=== PATIENT | male | born 1990 | race Caucasian/White ===

== ENCOUNTER 2017-12-01 04:00 | Inpatient (IN) | payer OTHER ==
[~2017-12-01 04:00] MED LIST: MIDAZOLAM 2 MG/2 ML VIAL IVP ONE; NS 1,000 ML IV ONE
[2017-12-01] MEDS ORDERED: SUCCINYLCHOLINE CHLORIDE 200 MG/10 ML VIAL IVP ONE (04:10)
[2017-12-01] MEDS ORDERED: ETOMIDATE 40 MG/20 ML INJ IVP ONE (04:10)
[2017-12-01] MEDS ORDERED: IOPAMIDOL (ISOVUE 370) 100 ML BTL IV ONE (04:11)
[2017-12-01] MEDS ORDERED: PROPOFOL/EMULSION 1,000 MG/100 ML BOTTLE IV ONE (04:15)
[2017-12-01] MEDS ORDERED: PROPOFOL/EMULSION 100 ML IV SCH ×2 (04:20→05:30)
[2017-12-01] MEDS ORDERED: ONDANSETRON 4 MG/2 ML VIAL ONE (04:22)
[2017-12-01] MEDS ORDERED: ONDANSETRON 4 MG/2 ML VIAL IVP ONE (04:23)
[2017-12-01] MEDS ORDERED: PROPOFOL 200 MG/20 ML VIAL IVP ONE (04:23)
[2017-12-01 04:24] LABS: PLATELET COUNT 252 10^3/uL (150-400)
[2017-12-01] MEDS ORDERED: NS 500 ML IV ONE (04:30)
[2017-12-01 04:33] LABS: INR 0.97 (0.83-1.16); PROTIME(PATIENT) 13.1 SEC (12.0-15.0)
--- NOTE | 2017-12-01 05:01 | EDPHY ---
H & P HPI/ROS: Chief Complaint: Fall, head injury HPI: 27-year-old male had a trip and fall down 12 concrete steps at home this morning. Per EMS the patient has been drinking alcohol. On EMS arrival the patient was unconscious. Patient then became increasingly combative. EMS states his GCS was 11. He required restraint. He has laceration to his right lip and contusion to his scalp. Unknown past medical history. Patient is unable to give me any history on arrival. EMS did not call for trauma team activation. ROS: Unavailable secondary to the patient's altered mental status PMH: Unknown Social History: Unknown smoking, positive alcohol, unknown drug use Family History: Unknown Physical Exam: Gen: Decreased responsiveness, not opening eyes, not making verbal sounds, GCS 7 HEENT: Head: Has an occipital abrasion with a large amount of scalp edema in the frontal and right parietal region, right lip laceration, not through and through Eyes: Pupils 3 mm and sluggish bilaterally, Nose: Dry blood around his nares Mouth: Normal dentition, Airway patent Face: No deformity Neck: no stepoff, cervical collar in place Chest: No deformities, no crepitus, lungs CTA Heart: normal heart tones Abd: soft, non-tender, atraumatic Pelvis: stable to AP and Lateral compression Back: atraumatic, no midline tenderness Ext: atramatic, full ROM Skin: no rash Neuro: GCS 7, moving all extremities, sensation intact in all extremities Allergies/Adverse Reactions: Unable to Assess Allergy (Unverified 12/01/17 05:02) Home Medications: Medication Instructions Recorded Unobtainable 12/01/17 Medical Decision Making - Diagnostics Imaging Results: CT scan of the head shows a bilateral subarachnoid hemorrhage, left parietal subdural hematoma, a parafalcine hematoma, no midline shift. There is a left frontal bone fracture., there is a left mastoid fracture with blood in the sinus CT cervical spine is normal CT chest shows a small anterior mediastinal blood collection with no sternal rib fractures and a normal aorta CT abdomen pelvis there is some thickening of clusters of small bowel adjacent to the right kidney with edematous mesentery, no free fluid, no blood, no solid organ injury. Studies interpreted by Dr. Molina. Procedures: ED procedure: Rapid sequence intubation Indication for the procedure was head injury, GCS of 7. The patient was preoxygenated with 100% oxygen by face mask. The patient was sedated with etomidate 20 mg and paralyzed with succinylcholine 120 mg. The patient was orally endotracheally intubated under glide scope visualization with a 8.0 ETT. Tracheal intubation was confirmed with misting on the tube; breath sounds were auscultated equally bilaterally; appropriate color change with [place] End Tidal CO2 detector, capnography waveform is appropriate, oxygen saturation after procedure is 100%. Chest X-ray shows ETT in good position. The procedure was performed by myself. ED Course/Re-evaluation: 27-year-old male status post fall down 10 stairs, obvious head trauma with a GCS of 7. Patient is not following commands. He is moving in unsafe. Patient was RSI intubated by me to facilitate workup in to protect the patient. Called Dr. Romero, trauma surgery for evaluation. Chest x-ray shows endotracheal tube in good position, lungs are inflated, no pneumothorax appreciated. Dr. Romero at the bedside. Patient had a large emesis during OG placement, patient's airway is protected. He was rolled to protect his airway. Patient to CT scan. CT scan results relayed to me by Dr. Molina. I have relayed these trauma surgery. He he is spoke with Dr. Daniels, neurosurgery. Patient received Keppra 1 g IV. Patient to the ICU. Critical Care Time: I spent a total of 40 minutes of critical care time in obtaining history, performing a physical exam, bedside monitoring of interventions, collecting and interpreting tests and discussion with consultants but not including time spent performing procedures. - Data Points Laboratory Results: Laboratory Results 12/01/17 04:16 12/01/17 04:00 12/01/17 12/01/17 12/01/17 04:57 04:55 04:16 WBC 13.49 10^3/uL H 10^3/uL (3.80-9.50) RBC 4.52 10^6/uL 10^6/uL (4.40-6.38) Hgb 14.5 g/dL g/dL (13.7-17.5) POC Hgb Hct 41.2 % % (40.0-51.0) POC Hct MCV 91.2 fL fL (81.5-99.8) MCH 32.1 pg pg (27.9-34.1) MCHC 35.2 g/dL g/dL (32.4-36.7) RDW 12.0 % % (11.5-15.2) Plt Count 252 10^3/uL 10^3/uL (150-400) MPV 9.2 fL fL (8.7-11.7) Neut % (Auto) 50.9 % % (39.3-74.2) Lymph % (Auto) 39.1 % % (15.0-45.0) [place] % (Auto) 6.7 % % (4.5-13.0) Eos % (Auto) 2.4 % % (0.6-7.6) Baso % (Auto) 0.4 % % (0.3-1.7) Nucleat RBC Rel Count 0.0 % % (0.0-0.2) Absolute Neuts (auto) 6.86 10^3/uL H 10^3/uL (1.70-6.50) Absolute Lymphs (auto) 5.28 10^3/uL H 10^3/uL (1.00-3.00) Absolute Monos (auto) 0.91 10^3/uL H 10^3/uL (0.30-0.80) Absolute Eos (auto) 0.32 10^3/uL 10^3/uL (0.03-0.40) Absolute Basos (auto) 0.05 10^3/uL 10^3/uL (0.02-0.10) Absolute Nucleated RBC 0.00 10^3/uL 10^3/uL (0-0.01) Immature Gran % 0.5 % % (0.0-1.1) Immature Gran # 0.07 10^3/uL 10^3/uL (0.00-0.10) PT INR APTT Puncture Site LEFT RADIAL Patient Temperature 34.5 DEGREES DEGREES pCO2 28 mmHg L mmHg (34-38) pO2 115 mmHg H mmHg (65-75) Total CO2 20 mEq/L L mEq/L (23-27) ABG pH 7.42 (7.35-7.45) ABG PO2/FiO2 Ratio 288 RATIO RATIO ABG HCO3 19 mEq/L L mEq/L (22-26) ABG O2 Saturation 99 % H % (92-95) ABG Base Excess -5.0 mEq/L L mEq/L (-2.5-2.5) O2 Concentration % 40 % % (0-100) Set Respiration Rate 16 SIMV YES Tidal Volume 600 End Tidal CO2 24 PEEP 5 Peak Inspir Pressure 16.10 Pressure Support 7 POC Sodium Sodium POC Potassium Potassium POC Chloride Chloride Carbon Dioxide Anion Gap POC BUN BUN Creatinine POC Creatinine Estimated GFR Glucose POC Glucose Calcium Urine Opiates Screen NEGATIVE (NEGATIVE) Urine Barbiturates NEGATIVE (NEGATIVE) Ur Phencyclidine Scrn NEGATIVE (NEGATIVE) Ur Amphetamine Screen NEGATIVE (NEGATIVE) U Benzodiazepines Scrn NEGATIVE (NEGATIVE) Urine Cocaine Screen NEGATIVE (NEGATIVE) U Marijuana (THC) Screen NEGATIVE (NEGATIVE) Ethyl Alcohol Patient ABO/Rh Antibody Screen 12/01/17 12/01/17 12/01/17 04:13 04:13 04:00 WBC RBC Hgb POC Hgb 14.6 gm/dL gm/dL (13.7-17.5) Hct POC Hct 43 % % (40-51) MCV MCH MCHC RDW Plt Count MPV Neut % (Auto) Lymph % (Auto) [place] % (Auto) Eos % (Auto) Baso % (Auto) Nucleat RBC Rel Count Absolute Neuts (auto) Absolute Lymphs (auto) Absolute Monos (auto) Absolute Eos (auto) Absolute Basos (auto) Absolute Nucleated RBC Immature Gran % Immature Gran # PT 13.1 SEC SEC (12.0-15.0) INR 0.97 (0.83-1.16) APTT 25.2 SEC SEC (23.0-38.0) Puncture Site Patient Temperature pCO2 pO2 Total CO2 ABG pH ABG PO2/FiO2 Ratio ABG HCO3 ABG O2 Saturation ABG Base Excess O2 Concentration % Set Respiration Rate SIMV Tidal Volume End Tidal CO2 PEEP Peak Inspir Pressure Pressure Support POC Sodium 143 mEq/L mEq/L (135-145) Sodium POC Potassium 3.2 mEq/L L mEq/L (3.3-5.0) Potassium POC Chloride 105 mEq/L mEq/L (97-110) Chloride Carbon Dioxide Anion Gap POC BUN 15 mg/dL mg/dL (7-23) BUN Creatinine POC Creatinine 1.3 mg/dL mg/dL (0.7-1.3) Estimated GFR Glucose POC Glucose 152 mg/dL H mg/dL (70-100) Calcium Urine Opiates Screen Urine Barbiturates Ur Phencyclidine Scrn Ur Amphetamine Screen U Benzodiazepines Scrn Urine Cocaine Screen U Marijuana (THC) Screen Ethyl Alcohol Patient ABO/Rh O POSITIVE Antibody Screen NEGATIVE 12/01/17 04:00 WBC RBC Hgb POC Hgb Hct POC Hct MCV MCH MCHC RDW Plt Count MPV Neut % (Auto) Lymph % (Auto) [place] % (Auto) Eos % (Auto) Baso % (Auto) Nucleat RBC Rel Count Absolute Neuts (auto) Absolute Lymphs (auto) Absolute Monos (auto) Absolute Eos (auto) Absolute Basos (auto) Absolute Nucleated RBC Immature Gran % Immature Gran # PT INR APTT Puncture Site Patient Temperature pCO2 pO2 Total CO2 ABG pH ABG PO2/FiO2 Ratio ABG HCO3 ABG O2 Saturation ABG Base Excess O2 Concentration % Set Respiration Rate SIMV Tidal Volume End Tidal CO2 PEEP Peak Inspir Pressure Pressure Support POC Sodium Sodium 147 mEq/L H mEq/L (135-145) POC Potassium Potassium 3.7 mEq/L mEq/L (3.5-5.2) POC Chloride Chloride 107 mEq/L mEq/L (97-110) Carbon Dioxide 21 mEq/l L mEq/l (22-31) Anion Gap 19 mEq/L H mEq/L (8-16) POC BUN BUN 15 mg/dL mg/dL (7-23) Creatinine 1.0 mg/dL mg/dL (0.7-1.3) POC Creatinine Estimated GFR > 60 Glucose 142 mg/dL H mg/dL (70-100) POC Glucose Calcium 9.0 mg/dL mg/dL (8.5-10.4) Urine Opiates Screen Urine Barbiturates Ur Phencyclidine Scrn Ur Amphetamine Screen U Benzodiazepines Scrn Urine Cocaine Screen U Marijuana (THC) Screen Ethyl Alcohol 383 mg/dL H mg/dL (0-10) Patient ABO/Rh Antibody Screen Point of Care Test Results: 12/01/17 04:00 POC Sodium 143 POC Potassium 3.2 L POC Chloride 105 POC BUN 15 POC Creatinine 1.3 POC Glucose 152 H Departure - Departure Disposition: [facility] Inpatient Acute Clinical Impression: Subarachnoid hemorrhage, Skull fracture Condition: Critical
[2017-12-01] MEDS ORDERED: levETIRAcetam 1,000 MG in NS 100 ML IV ONE (05:02)
[2017-12-01] MEDS ORDERED: NALOXONE HCL 0.4 MG/ML INJ IVP PRN (05:02)
[2017-12-01] MEDS ORDERED: fentaNYL 100 MCG/2 ML INJ IVP PRN (05:07)
[2017-12-01] MEDS ORDERED: ETOMIDATE 40 MG/20 ML INJ ONE (05:38)
[2017-12-01] MEDS ORDERED: TDAP ADULT 0.5 ML INJ (BOOSTRIX) IM ONE (05:38)
[2017-12-01] MEDS ORDERED: SUCCINYLCHOLINE CHLORIDE 200 MG/10 ML SYR IVP ONE (05:38)
--- NOTE | 2017-12-01 06:04 | GHP ---
[f rep st] HISTORY AND PHYSICAL DATE OF ADMISSION: 12/01/2017 CHIEF COMPLAINT: Fall. HISTORY OF PRESENT ILLNESS: This is a 27-year-old Male, who was brought to the [facility] emergency department by EMS after a witnessed sustained a mechanical fall. Per witnesses, the patient was drinking tonight and fell down a flight of stairs, approximately 12. Friends were with him at that time, and called 911. On arrival, the patient was combative and appeared to have urinated on the scene. Upon arrival here, he was combative, had a GCS of 8. The decision was made at that point in time, after arrival, to intubate for airway protection and upgrade to a full trauma activation. Upon my arrival, the patient had already been intubated as described above. Prior to this the patient was moving all extremities, was mumbling, and had a nonfocal exam. His airway was protected with the ET tube. He was breathing on the vent, paralyzed medically. His circulation appeared adequate with normal pressures. PAST MEDICAL HISTORY: Unobtainable. PAST SURGICAL HISTORY: Unobtainable. FAMILY HISTORY: Unobtainable. SOCIAL HISTORY: Unobtainable. REVIEW OF SYSTEMS: Unobtainable. PHYSICAL EXAM: VITAL SIGNS: Heart rate 88, blood pressure 120/89. CONSTITUTIONAL: Intubated. Sedated. Does move all extremities when sedation is weaned. EYES: pupils are equal, round, reactive to light. extraocular movements are intact. EARS, NOSE, MOUTH, THROAT: No external signs of trauma. Normal dentition. No drainage from either ear. No oral mucosal ulcers. CARDIOVASCULAR: Regular rate and rhythm without murmur. RESPIRATORY: No respiratory distress, rales, or rhonchi. GI: abdomen is soft, nondistended, nontender. SKIN: Abrasion on left shoulder. No other external signs of trauma on body. Normal color. No rashes or abrasions. MUSCULOSKELETAL: Full- strength. Denied tenderness. Normal range of motion. Nonfocal. NEUROLOGIC: Alert and oriented x3. Cranial nerves 2-12 intact. No weakness. No numbness. PSYCH : Best GCS of 8. Intubated in the emergency department. LYMPH/HEME/ IMMUNOLOGIC: No appreciable lymphadenopathy. LABORATORY DATA: White blood cell count 13, H and H stable at 14 and 41, platelets 252. Coags normal with an INR of 0.97. Blood gas shows a pH of 7.4 with base deficit of 5, CO2 of 20. Chemistry shows low potassium at 3.2, a glucose of 152. Tox screen is negative with the exception of an ETOH of 383. Patient had CT scan imaging performed of head; C-spine chest, abdomen, and pelvis. All these images personally reviewed. The following injuries were identified: Bilateral subarachnoid hemorrhage, left parietal subdural hematoma without shift, left frontal fracture, left mastoid fracture with blood in the sinus, and a parafalcine hematoma. Chest: No injuries. C-spine: No injuries. Abdomen and pelvis: No traumatic injuries. ASSESSMENT AND PLAN: A 27-year-old male, status post mechanical fall with the above head injuries. Patient will subsequently be admitted to the intensive care unit for intensive neuro monitoring. We will wean sedation and, as tolerates, plan for extubation within the next day or so. He received both tetanus and Keppra in the emergency department. Neurosurgical services have been notified and will review his images and consult on the patient. A Cotter catheter was placed in the ED along with an OG tube. We will contact his family. Will plan to repeat CT scan imaging per neurosurgical recommendations to ensure no worsening of his bleeds. /[id number]/MODL MTDD
[2017-12-01] MEDS: levETIRAcetam 500 MG in NS 100 ML IV SCH ×2 (08:05→20:22)
[2017-12-01] MEDS: FAMOTIDINE 20 MG/NACL 50 ML IV SCH ×2 (08:08→20:22)
--- NOTE | 2017-12-01 09:14 | TRAUMAPN ---
Assessment/Plan: Facial trauma status post fall while intoxicated. Intubated sedated in the ICU. Sub dural and sub arachnoid hemorrhage. Neurosurgery to see likely repeat imaging later on today. Await resolution of intoxication. Wean to extubate. Tertiary survey pending Objective: Vital Signs Temp Pulse Resp BP Pulse Ox 36.8 C 77 14 91/58 L 100 12/01/17 09:00 12/01/17 09:00 12/01/17 09:00 12/01/17 09:00 12/01/17 09:00 11/30/17 12/01/17 12/02/17 05:59 05:59 05:59 Intake Total 1250 Output Total 800 Balance 450 PT 13.1 SEC (12.0-15.0) 12/01/17 04:13 INR 0.97 (0.83-1.16) 12/01/17 04:13
--- NOTE | 2017-12-01 09:44 | GCON ---
[f rep st] CONSULTATION SYSTEM SOFTWARE DEVELOPER CONSULTATION REASON FOR ADMISSION: Multitrauma, closed head injury after a mechanical fall. The patient is a 27-year-old, white male, with unknown past medical history. He apparently had been drinking excessively and fell down a flight of stairs. There was some nausea and vomiting approximat penny at that time. He was brought in via EMS, intubated, and on mechanical ventilation and then subse quently admitted to the intensive care unit. Currently, he is sedated on mechanical ventilation. Al l history is gleaned from the medical record. REVIEW OF SYSTEMS: A 10-point review of systems was attempted but unable to obtain secondary to alte red mental status. PAST MEDICAL HISTORY: Unknown. PAST SURGICAL HISTORY: Unknown. FAMILY HISTORY: Noncontributory. SOCIAL HISTORY: Unknown. PHYSICAL EXAMINATION: VITAL SIGNS: Blood pressure is 91/58, pulse 77, respirations 14, temperature 36.8, oxygen saturation 100% on mechanical ventilation. GENERAL: He is a well-developed, well-arturo shed 27-year-old male, who is sedated and on mechanical ventilation. HEENT: Eyes are PERRLA, EOMI. He has swelling beneath his left eye. NECK: Has a hard C-collar. Endotracheal tube is in good pos ition. HEART: Regular rate and rhythm without murmurs, rubs, gallops. LUNGS: Diminished breath so unds. Otherwise, clear. ABDOMEN: Soft, nontender. Bowel sounds are present. EXTREMITIES: No clu bbing, cyanosis, or edema. LABORATORIES: White count is 13, hemoglobin 14, hematocrit 43, platelet count is 252. INR is 0.97. Sodium 143, potassium 3.2, chloride 107, CO2 is 21, BUN is 15, creatinine 1, glucose is 142. Arteri al blood gas pH is 7.42, pCO2 of 28, pO2 of 115, bicarb of 20, oxygen saturation 99%. This is on IMV of 16, tidal volume 600, plus 7 of pressure support, plus 5 of PEEP and 40%. CT scan of the head is reported as bilateral subarachnoid hemorrhage, with a left parietal subdural hematoma without shift. He has a left frontal fracture, left mastoid fracture with blood in the sinus and a parafalcine hem atoma. IMPRESSION: 1. Status post multitrauma. 2. Closed head injury with subarachnoid, subdural hematomas. 3. Acute respiratory failure secondary to head trauma. 4. Possible aspiration, per history. 5. Possible seizures. RECOMMENDATIONS: 1. Continue mechanical ventilation for now. 2. Perform fiberoptic bronchoscopy at soonest. 3. DVT and PE prophylaxis, holding anticoagulation for now. 4. Stress ulcer prophylaxis. 5. Continue aggressive sedation. 6. Neurosurgery has seen the patient. /[id number]/MODL
[2017-12-01] MEDS ORDERED: LIDOCAINE 2% JELLY 5 ML TUBE TP ONE (10:36)
[2017-12-01] MEDS ORDERED: LIDOCAINE 1% 300 MG/30 ML SDV MISC ONE (10:36)
--- NOTE | 2017-12-01 12:45 | NEUSURGPN ---
Assessment/Plan: Neurosurgery Consult Note-Full consult dictated 27 yo male sp fall down stairs while intoxicated -Head CT wo contrast shows small bilateral subdural hematomas and scattered subarachoid hemorrhage without midline shift -Neuro exam- limited due to sedation. Pupils equal and sluggishly reactive. Some grimmace to noxious stimuli -Repeat Head CT 1030 shows similar findings, no midline shift or worsening of subdural hematoma -Would recommend lightening sedation when able in order to get better neuro exam -Unable to clear cervical collar clinically at this time. CT Cervical Spine does not show any fractures but unsure of ligamentous injury -Seen by myself at 0630am and seen by Dr. Mills at 0830am -Will determine any further imaging/scans once able to get better exam, currently no neurosurgical intervention as has stable scans without midline shift Catheter Insertion Date: 12/01/17 - Physician Discussed Patient with Dr.: Mills Patient Seen by Dr.: Mills Neurosurgery Physical Exam - Vitals, I&O, Labs I and O 11/30/17 12/01/17 12/02/17 05:59 05:59 05:59 Intake Total 1250 Output Total 800 Balance 450 Weight 81.5 kg Intake: IV Infused (ml) 1250 Output: Urine (ml) 800 Other: Number of Emesis 1 Occurrences Vital Signs Temp Pulse Resp BP Pulse Ox 37.1 C 74 14 83/52 L 100 12/01/17 11:00 12/01/17 11:35 12/01/17 11:35 12/01/17 11:00 12/01/17 11:35 ICD10 Worksheet Patient Problems: Problems Problem Status Onset Skull fracture Acute Subarachnoid hemorrhage Acute
--- NOTE | 2017-12-01 13:25 | GCON ---
[f rep st] CONSULTATION NEUROSURGERY CONSULTATION CHIEF COMPLAINT: Fall down the stairs with head trauma. HISTORY OF PRESENT ILLNESS: This is a 27-year-old male who had a trip and fall down concrete steps at his home. The patient, per EMS, had been drinking alcohol. On EMS arrival, the patient was unconscious. The patient became increasingly combative. The EMS stated that his GCS was 11 at that time. He had some lacerations on his lip and scalp. However, the rest of his past medical history was unknown. He did arrive to the [facility] Emergency Room where he was then scanned and a CT scan of the head showed bilateral subarachnoid hemorrhage, left parietal small subdural hematoma, a parafalcine hematoma with no midline shift. There were also a left frontal bone fracture, and left mastoid fracture with blood in the sinus. CT of the cervical spine was found to be normal. The patient was then admitted to the ICU. The patient' s GCS did drop to a GCS of 7, requiring intubation. The patient was then admitted to the ICU. REVIEW OF SYSTEMS: Unable to obtain due to patient's mental status. PAST MEDICAL HISTORY: Unable to obtain due to the patient's mental status. PAST SURGICAL HISTORY: Unable to obtain due to patient's mental status. ALLERGIES: Patient has no known drug allergies. MEDICATIONS: Home medications unable to obtain due to patient's mental status. OBJECTIVE: VITAL SIGNS: Blood pressure 83/52, heart rate 76, respiratory rate 14, O2 sat 100% on a ventilator, FiO2 of 40%. Temperature 37.1 degrees Celsius. CONSTITUTIONAL: Patient is currently intubated and sedated. EYES: Pupils are pinpoint and equal. They are conjugate. He has multiple abrasions on his face and lip. EXTREMITIES: He does not have any cyanosis or edema noted. He does have a hard cervical collar in place. ABDOMEN: Nontender. NEURO: Limited due to the patient's current intubation and sedation. He does have a slight grimace to noxious stimuli, but no other movement of any extremities. LABORATORY DATA: White blood cell count 13.49, red blood cell count 4.52, hemoglobin 14.5, hematocrit 41.2. INR 0.97, APTT 25.2, PT 13.1. Blood gas: PCO2 28, pO2 115, O2 concentration percent is 40, respiratory rate is 16, tidal volume 600, PEEP of 5, and tidal CO2 is 24. ABG O2 saturation is 99. Chemistry : Sodium 143, potassium 3.7, chloride 107, carbon dioxide 21, anion gap 19, BUN 15, creatinine 1.0, estimated GFR greater than 60. Calcium is 9.0. Toxicology: Positive for alcohol 383. Negative for opiates, barbiturates, amphetamines, benzodiazepines, cocaine, and marijuana. DIAGNOSTIC IMAGING REVIEW: A head CT was performed without contrast at 0408 and shows: 1. Extensive subarachnoid hemorrhage with small subdural hematoma, and it is difficult to exclude small brain parenchymal contusions in a situation such as this, and if clinically indicated, MRI of the brain would be best subarachnoid from parenchymal hemorrhage. 2. Nondepressed left frontal and left mastoid sinus fractures. 3. No hydrocephalus, midline shift, or significant parenchymal edema at this time. A repeat head CT was then performed at 9:53 this morning and shows a subarachnoid and subdural blood with associated multiple petechial hemorrhage foci. A cervical spine CT was performed and shows good position of the ET tube and NG tube. No cervical fracture or dislocation is identified. ASSESSMENT: This is a 27-year-old male, who was intoxicated and fell down the stairs. His GCS declined, and he was combative, therefore, he was intubated. A head CT without contrast showed bilateral small subdural hematomas, as well as scattered subarachnoid hemorrhage. There was no midline shift. A repeat head CT scan 5 hours later was stable with subarachnoid and subdural blood with associated multiple petechial hemorrhage foci. The patient is currently unable to have a full neuro exam done, as he is currently intubated and sedated. We will wait until the patient is able to be weaned from his sedation, and hopefully extubated in order to get a better neuro exam. Currently at this time , there is no neurosurgical intervention needed, as his scans are stable, and do not have any midline shift. I did talk with Dr. Fletcher of Critical Care about this as well, and we will see what his neuro exam is like once he is off sedation. The patient was seen by myself at approximately 6:30 am. The patient was also seen by Dr. iMlls at approximately 8:30 a.m. Any questions or concerns please do not hesitate to ask Neurosurgery. We will continue to monitor this and follow this patient along,and assess what his exam is once he is off his sedation. /[id number]/MODL MTDD
[2017-12-01] MEDS: ONDANSETRON 4 MG/2 ML VIAL IVP PRN ×3 (13:55→21:50)
[2017-12-01] MEDS ORDERED: THIAMINE HCL 500 MG in NS 100 ML IV SCH (14:30)
[2017-12-01] MEDS: NS W/ 20 KCl/L 1,000 ML IV SCH (15:04)
[2017-12-01] MEDS: THIAMINE HCL 500 MG in NS 100 ML IV SCH (15:07)
--- NOTE | 2017-12-01 15:25 | ASMTCMCOM ---
CM Note CM Note Notes: Pt was admitted with SDH, SAH after a fall down stairs while intoxicated. Intubated and sedated due to combativeness, hoping to extubate soon. Parents arrived this morning. PT/OT/SLT evals pending. CM will follow for any d/c needs. Date Signed: 12/01/2017 03:24 PM Electronically Signed By:ALESSANDRA Alas
[2017-12-01] MEDS: CHLORHEXIDINE GLUCONATE 15 ML UDL PO SCH ×2 (16:01→19:12)
--- NOTE | 2017-12-01 18:36 | GPN ---
[f rep st] PROCEDURE NOTE PROCEDURE: Fiberoptic bronchoscopy. INDICATION: Possible aspiration. ANESTHESIA: Patient is currently sedated with propofol and on mechanical ventilation. PROCEDURE IN DETAIL: The procedure was performed in the intensive care unit. Continuous pulse ox, E KG, and blood pressure monitoring. Please note, patient is on mechanical ventilation which is by def inition a closed system and poses no risk to airborne pathogens however, and 95 masks were used throu ghout the procedure. After informed consent was obtained, bronchoscope was entered through #8 endotracheal tube. Distal t rachea and lashon were visualized, showed no endobronchial lesions and normal-appearing mucosa. Bron choscope in the right lung; right upper lobe, right middle lobe, right lower lobe, including subsegm ents were subsequently visualized and showed no endobronchial lesions and normal-appearing mucosa. B ronchoscope in the left lung; left upper lobe, lingula, left lower lobe, including subsegments were s ubsequently visualized, showed no endobronchial lesions and normal-appearing mucosa. There was no ev idence of aspiration throughout the procedure. Patient tolerated the procedure well. There were no apparent complications. /[id number]/MODL
[2017-12-02] MEDS: ONDANSETRON 4 MG/2 ML VIAL IVP PRN ×3 (02:57→15:29)
[2017-12-02] MEDS: NS W/ 20 KCl/L 1,000 ML IV SCH ×2 (03:20→17:59)
[2017-12-02] MEDS: levETIRAcetam 500 MG in NS 100 ML IV SCH (08:02)
[2017-12-02] MEDS: CHLORHEXIDINE GLUCONATE 15 ML UDL PO SCH (08:02)
[2017-12-02] MEDS: THIAMINE HCL 500 MG in NS 100 ML IV SCH (08:02)
[2017-12-02] MEDS: FAMOTIDINE 20 MG/NACL 50 ML IV SCH ×2 (08:02→21:04)
--- NOTE | 2017-12-02 09:31 | PDINTPN ---
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 Follows simple commands, but not verbal yet. Impulsive * C collar-still in place * Nutrition-none * PT/OT * Speech to see * Disposition-may need rehab Subjective: Opens eyes. Follows simple commands. Nonverbal at this point. Objective: Vital Signs Temp Pulse Resp BP Pulse Ox 37.8 C 68 12 129/76 H 95 12/02/17 07:55 12/02/17 07:55 12/02/17 07:55 12/02/17 07:55 12/02/17 07:55 12/01/17 12/02/17 12/03/17 05:59 05:59 05:59 Intake Total 1250 2322 Output Total 800 3300 Balance 450 -978 PT 13.1 SEC (12.0-15.0) 12/01/17 04:13 INR 0.97 (0.83-1.16) 12/01/17 04:13 Laboratory Results 12/01/17 04:16 12/01/17 04:00 12/01/17 15:30 Patient Temperature 37.6 DEGREES DEGREES pCO2 39 mmHg H mmHg (34 - 38) pO2 64 mmHg L mmHg (65 - 75) Total CO2 21 mEq/L L mEq/L (23 - 27) ABG pH 7.33 L (7.35 - 7.45) ABG HCO3 20 mEq/L L mEq/L (22 - 26) ABG O2 Saturation 89 % L % (92 - 95) ABG Base Excess -4.7 mEq/L L mEq/L (-2.5 - 2.5) - Time Spent With Patient Time Spent With Patient: 35 min of time spent with patient, over 1/2 involved with coordination of care for counseling. Case discussed with respiratory therapy, nursing, as well as the patient's family. Physical Exam - Physical Exam General Appearance: other (Awake, somewhat agitated) EENT: PERRL/EOMI Neck: other (Hard C-collar) Respiratory: chest non-tender, lungs clear, normal breath sounds Cardiac/Chest: normal peripheral pulses, regular rate, rhythm Peripheral Pulses: 2+: carotid (R), carotid (L), femoral (R), femoral (L), dorsalis-pedis (R), dorsalis-pedis (L) Abdomen: normal bowel sounds Male Genitalia: deferred Rectal: deferred Skin: normal color, warm/dry Extremities: normal range of motion Neuro/Psych: other (Awake) ICD10 Worksheet Patient Problems: Problems Problem Status Onset Skull fracture Acute Subarachnoid hemorrhage Acute
--- NOTE | 2017-12-02 10:45 | NEUSURGPN ---
Assessment/Plan: Neurosurgery Consult Note 27 yo male sp fall down stairs while intoxicated on 12/01 -Head CT wo contrast shows small bilateral subdural hematomas and scattered subarachoid hemorrhage without midline shift -Neuro exam- Improving-patient moving all extremities. Follows simple commands , but not verbal yet. May have said one word yesterday. He is impulsive. Will continue to monitor this, speech may take some time due to frontal lobe contusions but should get better -no further scans warranted at this time -Unable to clear cervical collar clinically at this time. CT Cervical Spine does not show any fractures but unsure of ligamentous injury -Patient discussed with Dr. Mills. -Parents also updated this morning S: Patient nonverbal O: NAD, VSS PERRL, EOM-Does track to command briefly but looses concentration easily No droop Nonverbal PEREZ X4 with full strength to command- impulsive and trying to pull on everything Catheter Insertion Date: 12/01/17 - Physician Discussed Patient with Dr.: Mills Neurosurgery Physical Exam - Vitals, I&O, Labs I and O 12/01/17 12/02/17 12/03/17 05:59 05:59 05:59 Intake Total 1250 2322 Output Total 800 3300 Balance 450 -978 Weight 81.5 kg Intake: IV Intake (ml) 1132 IV Infused (ml) 1250 1190 NS W/ 20 KCl/L 1,000 ml @ 1000 75 mls/hr IV CONT AMAIRANI Rx #:[id number] Propofol/Emulsion 100 ml 135 @ Titrate IV CONT AMAIRANI Rx# :[id number] fentaNYL 1,000 mcg In Ns 55 100 ml @ Per Protocol IV EDNOW ONE Rx#:[id number] Output: Urine (ml) 800 2950 Catheter 2950 Emesis (ml) 200 OG Tube Output (ml) 150 Forgan Sump 150 Other: Number of Stools Catheter 0 Number of Emesis 1 Occurrences Vital Signs Temp Pulse Resp BP Pulse Ox 37.7 C 69 19 132/70 H 95 12/02/17 09:00 12/02/17 09:00 12/02/17 09:00 12/02/17 09:00 12/02/17 09:00 ICD10 Worksheet Patient Problems: Problems Problem Status Onset Skull fracture Acute Subarachnoid hemorrhage Acute
[2017-12-02] MEDS ORDERED: levETIRAcetam 750 MG in NS 100 ML IV SCH (14:00)
--- NOTE | 2017-12-02 19:28 | SOAPPROG ---
SOAP Progress Note Assessment/Plan: Assessment: still non-talkative/ moves all extrem chest clear/ cor rr/ abd soft/ extrem full rom still unresponsive so unable to clear neck Plan:continue ICU treatment 12/02/17 19:26 Objective: Vital Signs Temp Pulse Resp BP Pulse Ox 38.1 C 63 22 H 124/82 H 95 12/02/17 19:00 12/02/17 19:00 12/02/17 19:00 12/02/17 19:00 12/02/17 19:00 12/01/17 12/02/17 12/03/17 05:59 05:59 05:59 Intake Total 1250 2322 1010 Output Total 800 3300 725 Balance 450 -978 285 PT 13.1 SEC (12.0-15.0) 12/01/17 04:13 INR 0.97 (0.83-1.16) 12/01/17 04:13 ICD10 Worksheet Patient Problems: Problems Problem Status Onset Fall (on) (from) other stairs and steps, initial encounter Acute Skull fracture Acute Subarachnoid hemorrhage Acute
[2017-12-02] MEDS: levETIRAcetam 750 MG in NS 100 ML IV SCH (21:05)
[2017-12-02] MEDS ORDERED: ACETAMINOPHEN 650 MG SUPP PR PRN (22:15)
[2017-12-03 05:24] LABS: PLATELET COUNT 148 10^3/uL (150-400)
--- NOTE | 2017-12-03 08:16 | NEUSURGPN ---
Assessment/Plan: 27 yo male sp fall down stairs while intoxicated on 12/01 -Head CT wo contrast shows small bilateral subdural hematomas and scattered subarachoid hemorrhage without midline shift. Will get repeat head CT today. -Neuro exam- Continues to slowly improve, remains non-verbal. Moving all extremities -Unable to clear cervical collar clinically at this time. CT Cervical Spine does not show any fractures but unsure of ligamentous injury -Patient tolerating PO per RN, ST continue to assess/treat. May change rectal Tylenol to PO and other meds as recommendation by ST/Pharmacy -Leave [place] for now, may dc in AM -Patient discussed with Dr. Mills Subjective: No new events per RN Objective: PERRL EOM-Does track to command briefly but looses concentration easily No droop Nonverbal PEREZ X4 with full strength to command- impulsive and trying to pull on everything Neuro Check Frequency: per routine Urinary Catheter in Place: Yes Urinary Catheter Indication: Accurate I & O Required Catheter Insertion Date: 12/01/17 - Physician Discussed Patient with : Lina Neurosurgery Physical Exam - Vitals, I&O, Labs I and O 12/02/17 12/03/17 12/04/17 05:59 05:59 05:59 Intake Total 2322 1972 Output Total 3300 1475 Balance -978 497 Weight 81.5 kg Intake: IV Intake (ml) 1132 962 IV Infused (ml) 1190 1010 NS W/ 20 KCl/L 1,000 ml @ 1000 1010 75 mls/hr IV CONT AMAIRANI Rx #:[id number] Propofol/Emulsion 100 ml 135 @ Titrate IV CONT AMAIRANI Rx# :[id number] fentaNYL 1,000 mcg In Ns 55 100 ml @ Per Protocol IV EDNOW ONE Rx#:[id number] Output: Urine (ml) 2950 1475 Catheter 2950 1475 Emesis (ml) 200 OG Tube Output (ml) 150 Grady Sump 150 Other: Number of Stools Catheter 0 0 Vital Signs Temp Pulse Resp BP Pulse Ox 37.9 C 65 21 H 122/92 H 94 12/03/17 06:51 12/03/17 06:51 12/03/17 06:51 12/03/17 05:57 12/03/17 06:51 Laboratory Results 12/03/17 05:00 12/03/17 05:00 ICD10 Worksheet Patient Problems: Problems Problem Status Onset Fall (on) (from) other stairs and steps, initial encounter Acute Skull fracture Acute Subarachnoid hemorrhage Acute
[2017-12-03] MEDS: FAMOTIDINE 20 MG/NACL 50 ML IV SCH (08:27)
[2017-12-03] MEDS: ACETAMINOPHEN 325 MG TAB PO PRN ×2 (08:27→20:39)
[2017-12-03] MEDS: levETIRAcetam 750 MG in NS 100 ML IV SCH (08:27)
[2017-12-03] MEDS: THIAMINE HCL 500 MG in NS 100 ML IV SCH (08:27)
[2017-12-03] MEDS: NS W/ 20 KCl/L 1,000 ML IV SCH (08:30)
[2017-12-03] MEDS: ONDANSETRON 4 MG/2 ML VIAL IVP PRN (09:11)
--- NOTE | 2017-12-03 10:44 | TRAUMAPN ---
Assessment/Plan: Facial trauma status post fall while intoxicated. Sub dural and sub arachnoid hemorrhage. Mastoid fx Awake not oriented OOB to chair C-Collar in place Intermittently follows commands Unable to complete tertiary survey due to non verbal status Left eye ecchymosis RRR CTA Abd soft NT Neurosurgery to see likely repeat imaging later on today. Rehab post discharge MRI of neck in 28-48hr if remains non verbal so as to clear c-spine per protocol [place] until 12/04 as unable to communicate yet -remove then Fever overnight likely atelectasis CXR no signs of aspiration Tertiary survey pending Objective: Vital Signs Temp Pulse Resp BP Pulse Ox 37.9 C 66 18 137/83 H 95 12/03/17 09:00 12/03/17 09:00 12/03/17 09:00 12/03/17 08:00 12/03/17 09:00 Laboratory Results 12/03/17 05:00 12/03/17 05:00 12/02/17 12/03/17 12/04/17 05:59 05:59 05:59 Intake Total 2322 1972 240 Output Total 3300 1475 Balance -978 497 240 PT 13.1 SEC (12.0-15.0) 12/01/17 04:13 INR 0.97 (0.83-1.16) 12/01/17 04:13
--- NOTE | 2017-12-03 14:53 | PDINTPN ---
Colors Custodian Progress Note Assessment/Plan: Assessment/plan: 27 M s/p fall downstairs with closed head injury 12/01/16 involving bilateral frontal and temporal lobes. Initially intubated 2/2 poor airway protection, but extubated next day. BAL on vent unremarkable. He has slowly shown signs of improvement but remains nonverbal as of 12/03/16. Eating some, standing occasionally. Seizure activity mentioned at time of injury, but none seen during hospitalization. * TBI- new head CT today shows increase in bilateral frontal and temporal hemorrhages with edema and subfalcine herniation. Defer to neurosurgery, but clinically with daily improvements per staff and family. Anticipate rehab eventually. * Hypoxia- Imaging shows only atelectasis and BAL negative. No evidence of infection at this point and WBC trending down without abx. Continue to hold and add IS when he's able to follow. Low grade fever at the moment. HENDRICKS negative to date * Seizure? remains on keppra * Sodium normalized to 138 on 12/03/17 * Subjective: no events Objective: Vital Signs Temp Pulse Resp BP Pulse Ox 37 C 71 16 130/70 H 94 12/03/17 14:00 12/03/17 14:00 12/03/17 14:00 12/03/17 14:00 12/03/17 14:00 Laboratory Results 12/03/17 05:00 12/03/17 05:00 12/02/17 12/03/17 12/04/17 05:59 05:59 05:59 Intake Total 2322 1972 240 Output Total 3300 1475 Balance -978 497 240 PT 13.1 SEC (12.0-15.0) 12/01/17 04:13 INR 0.97 (0.83-1.16) 12/01/17 04:13 Physical Exam - Physical Exam General Appearance: obtunded, other (minimal response to stim) EENT: PERRL/EOMI, other (eccymosis left orbit) Neck: supple Respiratory: lungs clear, normal breath sounds, No respiratory distress, No accessory muscle use Cardiac/Chest: regular rate, rhythm, No edema Abdomen: non-tender, soft, No distended Skin: normal color, warm/dry, No cyanosis Extremities: No pedal edema Neuro/Psych: cognition abnormalities ICD10 Worksheet Patient Problems: Problems Problem Status Onset Fall (on) (from) other stairs and steps, initial encounter Acute Skull fracture Acute Subarachnoid hemorrhage Acute
[2017-12-03] MEDS: levETIRAcetam 250 MG TAB PO SCH (20:39)
[2017-12-03] MEDS: FAMOTIDINE 20 MG TAB PO SCH (20:39)
[2017-12-04] MEDS: NS W/ 20 KCl/L 1,000 ML IV SCH (01:14)
[2017-12-04] MEDS: levETIRAcetam 250 MG TAB PO SCH ×2 (08:06→20:09)
[2017-12-04] MEDS: FAMOTIDINE 20 MG TAB PO SCH ×2 (08:06→20:09)
--- NOTE | 2017-12-04 08:43 | NEUSURGPN ---
Assessment/Plan: 27 yo male sp fall down stairs while intoxicated on 12/01 -Head CT wo contrast done yesterday shows small bilateral subdural hematomas and scattered subarachoid hemorrhage without midline shift - with expected blossoming of frontal and temporal contusions -Neuro exam- Continues to slowly improve, remains non-verbal. Moving all extremities -Unable to clear cervical collar clinically at this time. CT Cervical Spine does not show any fractures but unsure of ligamentous injury -Patient tolerating PO per RN, ST continue to assess/treat. May change rectal Tylenol to PO and other meds as recommendation by ST/Pharmacy -Pt not following commands today but yesterday per family/RN was washing his face, applying chapstick to lips, etc. Continue to monitor. RN to give update this afternoon -DC [place] -Patient discussed with Dr. Mills -Please call NS with any questions/concerns Subjective: Unable to obtain, family at bedside. Objective: Sleeping but awakens easily NAD VSS PERRL Ecchymosis over L > R eyes MAEx4 - resting in bed with fingers interlaced over chest, crossing and uncrossing legs Urinary Catheter in Place: Yes Urinary Catheter Indication: Other (Use Comment) (to be removed today) Catheter Insertion Date: 12/01/17 - Physician Discussed Patient with : Lina Neurosurgery Physical Exam - Vitals, I&O, Labs I and O 12/03/17 12/04/17 12/05/17 05:59 05:59 05:59 Intake Total 1972 2450 Output Total 1475 2450 Balance 497 0 Intake: Oral (ml) 540 IV Intake (ml) 962 900 IV Infused (ml) 1010 1010 NS W/ 20 KCl/L 1,000 ml @ 1010 1010 75 mls/hr IV CONT AMAIRANI Rx #:[id number] Output: Urine (ml) 1475 2450 Catheter 1475 2450 Other: Number of Stools Catheter 0 0 Vital Signs Temp Pulse Resp BP Pulse Ox 37.5 C 55 L 14 137/95 H 96 12/04/17 07:49 12/04/17 07:49 12/04/17 07:49 12/04/17 07:49 12/04/17 07:49 Laboratory Results 12/03/17 05:00 12/03/17 05:00 ICD10 Worksheet Patient Problems: Problems Problem Status Onset Fall (on) (from) other stairs and steps, initial encounter Acute Skull fracture Acute Subarachnoid hemorrhage Acute
--- NOTE | 2017-12-04 10:51 | TRAUMAPN ---
- Problem/Surgery Performed (1) Subdural hematoma Assessment/Plan: 12/04/2017 PAD#3 Assessment: He has multiple intra-cranial injuries acacia neuro surgery feels are stable: Bilateral subarachnoid hematomas Left parietal subdural Parafalcine hematoma bilateral frontal intraparenchymal hematomas Bilateral frontal epidural vs. subdural hematomas He is more and more interactive (non- verbal). He will drink and eat as food/ liquid is presented to him. He will follow some commands. Plan: Continue observation Plan in-patient rehab (2) Skull fracture Assessment/Plan: 12/04/2017 PAD#3 Stable Qualifiers: Encounter type: subsequent encounter Skull bone/location: frontal bone Fracture type: closed (3) Multiple contusions Assessment/Plan: PAD#3 Assessment: Left wrist/elbow/shoulder/periorbital/lip/frontal contusions are stable Plan: await resolution Assessment/Plan: Tertiary assessment completed - no new findings. Time spent with parents talking about alcohol use/abuse/physiologic consequences as well as the need for a treatment plan - ~ 25 minutes Subjective: still non-verbal Objective: Vital Signs Temp Pulse Resp BP Pulse Ox 37.5 C 52 L 12 153/93 H 97 12/04/17 07:49 12/04/17 09:23 12/04/17 09:23 12/04/17 09:23 12/04/17 09:23 Laboratory Results 12/03/17 05:00 12/03/17 05:00 12/03/17 12/04/17 12/05/17 05:59 05:59 05:59 Intake Total 1972 2450 750 Output Total 1475 2450 375 Balance 497 0 375 PT 13.1 SEC (12.0-15.0) 12/01/17 04:13 INR 0.97 (0.83-1.16) 12/01/17 04:13 - C-Spine Clearance Cervical Spine Cleared: No Physical Exam - Physical Exam General Appearance: WD/WN, no apparent distress EENT: other (left lip contusion stable - it is not a through and throughg bite wound) Neck: other (We have been reluctant to sedate further for MRI due to the exoectation the he will continue to emerge and be available for clinical clearence of neck. He remains in a hard collar.) Respiratory: chest non-tender, lungs clear, normal breath sounds, other (IS started) Cardiac/Chest: regular rate, rhythm Abdomen: normal bowel sounds, non-tender, soft, other (passing gas, eating x 24 hours) Rectal: deferred Back: Normal inspection Skin: normal color, warm/dry Extremities: normal range of motion, non-tender, normal inspection Neuro/Psych: other (GCS - eye 3, verbal 1, motor 5 = 9 Moves all extermities - swallows - voids on command) Time Spent w/Patient (minutes): 55
--- NOTE | 2017-12-04 16:06 | PDINTPN ---
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 Initially intubated 2/2 poor airway protection, but extubated next day. BAL on vent unremarkable. He has slowly shown signs of improvement but remains nonverbal as of 12/03/16. Eating some, standing occasionally. Seizure activity mentioned at time of injury, but none seen during hospitalization. * TBI- repeat head CT 12/03 shows anticipated increase in bilateral frontal and temporal hemorrhages with edema and subfalcine herniation. Defer to neurosurgery , but clinically with daily improvements per staff and family. Anticipate rehab eventually. * Hypoxia- Imaging shows only atelectasis and BAL negative. No evidence of infection at this point and WBC trending down without abx. Continue to hold and add IS when he's able to follow. Low grade fever at the moment. HENDRICKS negative to date * Seizure? remains on keppra * Sodium normalized to 138 on 12/03/17 * 12/04/17 16:04 Subjective: remains intermittently hyperactive and somnolent Objective: Vital Signs Temp Pulse Resp BP Pulse Ox 37.2 C 53 L 16 128/77 H 97 12/04/17 15:29 12/04/17 15:29 12/04/17 15:29 12/04/17 15:29 12/04/17 15:29 Laboratory Results 12/03/17 05:00 12/03/17 05:00 12/03/17 12/04/17 12/05/17 05:59 05:59 05:59 Intake Total 1972 2450 750 Output Total 1475 2450 375 Balance 497 0 375 PT 13.1 SEC (12.0-15.0) 12/01/17 04:13 INR 0.97 (0.83-1.16) 12/01/17 04:13 Physical Exam - Physical Exam General Appearance: no apparent distress, obtunded EENT: PERRL/EOMI Respiratory: lungs clear, normal breath sounds, decreased breath sounds, No respiratory distress, No accessory muscle use Cardiac/Chest: regular rate, rhythm, No edema Abdomen: non-tender, soft, No distended Skin: normal color, warm/dry, No cyanosis Lymphatic: no adenopathy Extremities: No pedal edema Neuro/Psych: cognition abnormalities ICD10 Worksheet Patient Problems: Problems Problem Status Onset Fall (on) (from) other stairs and steps, initial encounter Acute Multiple contusions Acute Skull fracture Acute Subarachnoid hemorrhage Acute Subdural hematoma Acute
--- NOTE | 2017-12-04 17:02 | ASMTCMCOM ---
CM Note CM Note Notes: Patient has [employer] ins, parents live in [place], In-pt Rehab following his progress, may be ready for Rehab in 2-3 days. Gave this info to admissions. Date Signed: 12/04/2017 05:01 PM Electronically Signed By:Jeri Martinez LCSW
[2017-12-04] MEDS: ACETAMINOPHEN 325 MG TAB PO PRN (20:54)
[2017-12-04] MEDS: POLYETHYLENE GLYCOL 3350 17 GM PKT PO SCH (20:55)
--- NOTE | 2017-12-05 08:18 | NEUSURGPN ---
Assessment/Plan: 27 yo male sp fall down stairs while intoxicated on 12/01 -Head CT wo contrast shows small bilateral subdural hematomas and scattered subarachoid hemorrhage without midline shift. Will get repeat head CT today. -Neuro exam- Continues to slowly improve, remains non-verbal. Moving all extremities -Unable to clear cervical collar clinically at this time. CT Cervical Spine does not show any fractures but unsure of ligamentous injury -Patient tolerating PO per RN, ST continue to assess/treat -Patient using urinal -Rehab consulted, case management working on placement options when ready to dc -Patient discussed with Dr. Mills Subjective: Unable to obtain, no new events per RN Objective: Sleeping responds to stimuli BLE PERRL Ecchymosis over L > R eyes MAEx4 - laying on side Neuro Check Frequency: per routine Urinary Catheter in Place: No Catheter Insertion Date: 12/01/17 - Physician Discussed Patient with Dr.: Mills Patient Seen by Dr.: Mills Neurosurgery Physical Exam - Vitals, I&O, Labs I and O 12/04/17 12/05/17 12/06/17 05:59 05:59 05:59 Intake Total 2450 1925 Output Total 2450 1875 Balance 0 50 Intake: Oral (ml) 540 1925 IV Intake (ml) 900 IV Infused (ml) 1010 NS W/ 20 KCl/L 1,000 ml @ 1010 75 mls/hr IV CONT AMAIRANI Rx #:[id number] Output: Urine (ml) 2450 1875 Catheter 2450 375 Urinal 1500 Other: Intake Quantity Yes Sufficient Number of Voids Incontinence 1 1 Urinal 1 Number of Stools Catheter 0 Vital Signs Temp Pulse Resp BP Pulse Ox 37.6 C 48 L 14 125/77 H 96 12/05/17 04:00 12/05/17 06:00 12/05/17 06:00 12/05/17 06:00 12/05/17 06:00 Laboratory Results 12/03/17 05:00 12/03/17 05:00 ICD10 Worksheet Patient Problems: Problems Problem Status Onset Fall (on) (from) other stairs and steps, initial encounter Acute Multiple contusions Acute Skull fracture Acute Subarachnoid hemorrhage Acute Subdural hematoma Acute
[2017-12-05] MEDS: POLYETHYLENE GLYCOL 3350 17 GM PKT PO SCH ×2 (11:01→20:04)
[2017-12-05] MEDS: FAMOTIDINE 20 MG TAB PO SCH ×2 (11:01→20:04)
[2017-12-05] MEDS: levETIRAcetam 250 MG TAB PO SCH ×2 (11:01→20:04)
--- NOTE | 2017-12-05 12:44 | ASMTCMCOM ---
CM Note CM Note Notes: Spoke with patient's mother and gave her a list of rehab programs to review for patient. Included was [place], 2 locations of [place], and [facility] inpatient rehab. Dr. Mills has recommended a facility named [facility] to Joanna, patient's mother. Requested Joanna let us know when she has made a decision about the program they choose. CM will follow. Date Signed: 12/05/2017 12:44 PM Electronically Signed By:Geena Otero LCSW
--- NOTE | 2017-12-05 13:28 | TRAUMAPN ---
- Problem/Surgery Performed (1) Subdural hematoma Assessment/Plan: 12/04/2017 PAD#3 Assessment: He has multiple intra-cranial injuries that neuro surgery feels are stable: Bilateral subarachnoid hematomas Left parietal subdural Parafalcine hematoma bilateral frontal intraparenchymal hematomas Bilateral frontal epidural vs. subdural hematomas He is more and more interactive (non- verbal). He will drink and eat as food/ liquid is presented to him. He will follow some commands. Plan: Continue observation Plan in-patient rehab 12/05/2017 PAD#4 Assessment: He has been up walking in halls, voided into toilet, used tooth brush but still non-verbal Plan: Will continue hard collar until he is interactive enough for evaluation. (2) Skull fracture Assessment/Plan: 12/04/2017 PAD#3 Stable PAD#4 Stable Qualifiers: Encounter type: subsequent encounter Skull bone/location: frontal bone Fracture type: closed (3) Multiple contusions Assessment/Plan: PAD#3 Assessment: Left wrist/elbow/shoulder/periorbital/lip/frontal contusions are stable Plan: await resolution PAD#4 Stable Assessment/Plan: PAD#3 Tertiary assessment completed - no new findings. Time spent with parents talking about alcohol use/abuse/physiologic consequences as well as the need for a treatment plan - ~ 25 minutes PAD#4 Family understands and sees slow progression. Objective: Vital Signs Temp Pulse Resp BP Pulse Ox 36.7 C 54 L 15 139/82 H 100 12/05/17 12:00 12/05/17 12:00 12/05/17 12:00 12/05/17 12:00 12/05/17 12:00 Laboratory Results 12/03/17 05:00 12/03/17 05:00 12/04/17 12/05/17 12/06/17 05:59 05:59 05:59 Intake Total 2450 1925 Output Total 2450 1875 800 Balance 0 50 -800 PT 13.1 SEC (12.0-15.0) 12/01/17 04:13 INR 0.97 (0.83-1.16) 12/01/17 04:13 - C-Spine Clearance Cervical Spine Cleared: No Physical Exam - Physical Exam General Appearance: WD/WN, no apparent distress Neck: other (In hard collar) Respiratory: chest non-tender, lungs clear, normal breath sounds Cardiac/Chest: regular rate, rhythm Abdomen: normal bowel sounds, non-tender, soft, other (no stool yet) Male Genitalia: deferred Rectal: deferred Skin: normal color, warm/dry Extremities: normal range of motion, non-tender, normal inspection Neuro/Psych: other (no focal or lateralizing findings. Still non-verbal) Time Spent w/Patient (minutes): 25
--- NOTE | 2017-12-05 14:52 | PDINTPN ---
Executive Kitchen Manager Progress Note Assessment/Plan: Assessment/plan: 27 M s/p fall downstairs with closed head injury 12/01/16 involving bilateral frontal and temporal lobes. Initially intubated 2/2 poor airway protection, but extubated next day. BAL on vent unremarkable. He has slowly shown signs of improvement but remains nonverbal as of 12/03/16. Eating some, standing occasionally. Seizure activity mentioned at time of injury, but none seen during hospitalization. * TBI- repeat head CT 12/03 shows anticipated increase in bilateral frontal and temporal hemorrhages with edema and subfalcine herniation. Defer to neurosurgery , but clinically with daily improvements per staff and family. Anticipate rehab eventually. Walked halls but remains non verbal * Hypoxia- Imaging shows only atelectasis and BAL negative. No evidence of infection at this point and WBC trending down without abx. Continue to hold and add IS when he's able to follow. Low grade fever at the moment. HENDRICKS negative to date * Seizure? remains on keppra * Sodium normalized to 138 on 12/03/17 * Subjective: no events Objective: Vital Signs Temp Pulse Resp BP Pulse Ox 36.7 C 56 L 17 130/65 H 100 12/05/17 12:00 12/05/17 14:00 12/05/17 14:00 12/05/17 14:00 12/05/17 14:00 Laboratory Results 12/03/17 05:00 12/03/17 05:00 12/04/17 12/05/17 12/06/17 05:59 05:59 05:59 Intake Total 2450 1925 Output Total 2450 1875 800 Balance 0 50 -800 PT 13.1 SEC (12.0-15.0) 12/01/17 04:13 INR 0.97 (0.83-1.16) 12/01/17 04:13 Physical Exam - Physical Exam General Appearance: no apparent distress, obtunded EENT: PERRL/EOMI Respiratory: lungs clear, normal breath sounds, No respiratory distress Cardiac/Chest: regular rate, rhythm, No edema Abdomen: non-tender, soft, No distended Skin: normal color, warm/dry, No cyanosis Lymphatic: no adenopathy Extremities: No pedal edema Neuro/Psych: cognition abnormalities ICD10 Worksheet Patient Problems: Problems Problem Status Onset Fall (on) (from) other stairs and steps, initial encounter Acute Multiple contusions Acute Skull fracture Acute Subarachnoid hemorrhage Acute Subdural hematoma Acute
[2017-12-05] MEDS: ACETAMINOPHEN 325 MG TAB PO PRN (20:04)
--- NOTE | 2017-12-06 08:20 | NEUSURGPN ---
Assessment/Plan: 27 yo male sp fall down stairs while intoxicated on 12/01, patient overall no participatory with exam. Will participate some what with motivation (offering ice chips) -Head CT wo contrast shows small bilateral subdural hematomas and scattered subarachoid hemorrhage without midline shift. -Neuro exam- Continues to slowly improve, remains non-verbal. Moving all extremities -Unable to clear cervical collar clinically at this time. CT Cervical Spine does not show any fractures but unsure of ligamentous injury -Patient tolerating PO per RN, ST continue to assess/treat -Rehab consulted, case management working on placement options -Patient discussed with Dr. Mills Subjective: Unable to obtain, patient non verbal Objective: NAD Pupils equal and reactive bilaterally. Will interact with ice chips. MAEx4 Catheter Insertion Date: 12/01/17 - Physician Discussed Patient with Dr.: Mills Neurosurgery Physical Exam - Vitals, I&O, Labs I and O 12/05/17 12/06/17 12/07/17 05:59 05:59 05:59 Intake Total 19240 Output Total 1871999 Balance 50 -350 Intake: Oral (ml) 1924 1650 Output: Urine (ml) 1874 1999 Catheter 375 Toilet 1300 Urinal 1500 700 Other: Intake Quantity Yes Sufficient Number of Voids Incontinence 1 1 Toilet 1 Urinal 1 Vital Signs Temp Pulse Resp BP Pulse Ox 36.9 C 52 L 10 L 118/82 H 94 12/06/17 04:00 12/06/17 06:00 12/06/17 06:00 12/06/17 06:00 12/06/17 06:00 Laboratory Results 12/03/17 05:00 12/03/17 05:00 ICD10 Worksheet Patient Problems: Problems Problem Status Onset Fall (on) (from) other stairs and steps, initial encounter Acute Multiple contusions Acute Skull fracture Acute Subarachnoid hemorrhage Acute Subdural hematoma Acute
--- NOTE | 2017-12-06 10:02 | TRAUMAPN ---
- Problem/Surgery Performed (1) Subdural hematoma Assessment/Plan: 12/04/2017 PAD#3 Assessment: He has multiple intra-cranial injuries that neuro surgery feels are stable: Bilateral subarachnoid hematomas Left parietal subdural Parafalcine hematoma bilateral frontal intraparenchymal hematomas Bilateral frontal epidural vs. subdural hematomas He is more and more interactive (non- verbal). He will drink and eat as food/ liquid is presented to him. He will follow some commands. Plan: Continue observation Plan in-patient rehab 12/05/2017 PAD#4 Assessment: He has been up walking in halls, voided into toilet, used tooth brush but still non-verbal Plan: Will continue hard collar until he is interactive enough for evaluation. 12/06/2017 PAD#5 Assessment: He remains non-verbal but is up walking in [place], brushing teeth, voiding in commode. When in bed, he his hard to arouse. urine cloudy He has a history of multiple ear infections and has been noted to be holding his nose and blown as if to clear ears. TMs clear Plan: As part of plan to transfer to rehab, a reassessment is undertaken. WBC will be checked. UA/urine culture will be checked. (2) Skull fracture Assessment/Plan: 12/04/2017 PAD#3 Stable PAD#4 Stable PAD#5 Stable Qualifiers: Encounter type: subsequent encounter Skull bone/location: frontal bone Fracture type: closed (3) Multiple contusions Assessment/Plan: PAD#3 Assessment: Left wrist/elbow/shoulder/periorbital/lip/frontal contusions are stable Plan: await resolution PAD#4 Stable PAD#5 stable Assessment/Plan: PAD#3 Tertiary assessment completed - no new findings. Time spent with parents talking about alcohol use/abuse/physiologic consequences as well as the need for a treatment plan - ~ 25 minutes PAD#4 Family understands and sees slow progression. PAD#5 Assessment: Improving Plan: Transfer to rehab soon Subjective: non-verbal Objective: Vital Signs Temp Pulse Resp BP Pulse Ox 37.5 C 53 L 14 115/72 90 L 12/06/17 08:00 12/06/17 08:00 12/06/17 08:00 12/06/17 08:00 12/06/17 08:00 Laboratory Results 12/03/17 05:00 12/03/17 05:00 12/05/17 12/06/17 12/07/17 05:59 05:59 05:59 Intake Total 192 1650 Output Total 0381999 900 Balance 50 -350 -900 PT 13.1 SEC (12.0-15.0) 12/01/17 04:13 INR 0.97 (0.83-1.16) 12/01/17 04:13 - C-Spine Clearance Cervical Spine Cleared: No Physical Exam - Physical Exam General Appearance: WD/WN, other (still impulsive and non-verbal) EENT: other (TMs with good cone of light reflex) Neck: other (Keeps tearing off collar) Respiratory: chest non-tender, lungs clear, normal breath sounds Cardiac/Chest: regular rate, rhythm Abdomen: normal bowel sounds, non-tender, soft, other (Flatus but no stool) Male Genitalia: deferred Rectal: deferred Back: Normal inspection Skin: normal color, warm/dry, other (contusions continue) Extremities: normal range of motion, non-tender, normal inspection Time Spent w/Patient (minutes): 35
[2017-12-06] MEDS: POLYETHYLENE GLYCOL 3350 17 GM PKT PO SCH ×2 (10:18→19:28)
[2017-12-06] MEDS: levETIRAcetam 250 MG TAB PO SCH ×2 (10:19→19:29)
[2017-12-06] MEDS: FAMOTIDINE 20 MG TAB PO SCH ×2 (10:19→19:29)
[2017-12-06 11:40] LABS: PLATELET COUNT 264 10^3/uL (150-400)
--- NOTE | 2017-12-06 14:11 | ASMTCMCOM ---
CM Note CM Note Notes: Spoke with patient's mother who states [facility] is their first choice for rehab. A referral was sent to [facility]. Joanna states if insurance does not cover [facility], they will opt for [facility] Inpatient rehab. Left a message for Leti Rosario. CM will follow. Date Signed: 12/06/2017 02:10 PM Electronically Signed By:Geena Otero LCSW
--- NOTE | 2017-12-06 15:37 | PDINTPN ---
Olericulture Teacher Progress Note Assessment/Plan: Assessment/plan: 27 M s/p fall downstairs with closed head injury 12/01/16 involving bilateral frontal and temporal lobes. Initially intubated 2/2 poor airway protection, but extubated next day. BAL on vent unremarkable. He has slowly shown signs of improvement but remains nonverbal as of 12/03/16. Eating some, standing occasionally. Seizure activity mentioned at time of injury, but none seen during hospitalization. * TBI- repeat head CT 12/03 showed anticipated increase in bilateral frontal and temporal hemorrhages with edema and subfalcine herniation. Defer to neurosurgery, but clinically with daily improvements per staff and family. Anticipate rehab eventually. remains non verbal * Hypoxia- Imaging shows only atelectasis and BAL negative. No evidence of infection at this point and WBC trending down without abx. Continue to hold and add IS when he's able to follow. Low grade fever at the moment. HENDRICKS negative to date * Seizure? remains on keppra * Sodium normalized to 138 on 12/03/17 * OK for rehab from critical care perspective 12/06/17 15:36 Subjective: No events. Walks in the halls, brushes his teeth Objective: Vital Signs Temp Pulse Resp BP Pulse Ox 36.9 C 77 17 133/89 H 95 12/06/17 13:52 12/06/17 13:52 12/06/17 13:52 12/06/17 13:52 12/06/17 13:52 Laboratory Results 12/06/17 11:25 12/03/17 05:00 12/05/17 12/06/17 12/07/17 05:59 05:59 05:59 Intake Total 1925 1650 1000 Output Total 1875 2000 1250 Balance 50 -350 -250 PT 13.1 SEC (12.0-15.0) 12/01/17 04:13 INR 0.97 (0.83-1.16) 12/01/17 04:13 Physical Exam - Physical Exam General Appearance: no apparent distress, obtunded EENT: PERRL/EOMI Neck: other (collar in place) Respiratory: lungs clear, normal breath sounds, No respiratory distress, No accessory muscle use Cardiac/Chest: regular rate, rhythm, No edema Abdomen: non-tender, soft, No distended Skin: normal color, warm/dry, No cyanosis Lymphatic: no adenopathy Extremities: No pedal edema Neuro/Psych: cognition abnormalities, No motor weakness ICD10 Worksheet Patient Problems: Problems Problem Status Onset Fall (on) (from) other stairs and steps, initial encounter Acute Multiple contusions Acute Skull fracture Acute Subarachnoid hemorrhage Acute Subdural hematoma Acute
[2017-12-06] MEDS: ACETAMINOPHEN 325 MG TAB PO PRN (19:28)
--- NOTE | 2017-12-07 08:36 | NEUSURGPN ---
Assessment/Plan: 27 yo male sp fall down stairs while intoxicated on 12/01, patient overall no participatory with exam. Will participate some what with motivation (offering ice chips) -Head CT wo contrast shows bilateral subdural hematomas and scattered subarachoid hemorrhage without midline shift. Patient neuro exam is stable. Will hold off with further imaging unless exam declines. Will need repeat HCT in 4 weeks -Neuro exam- Continues to slowly improve, remains non-verbal. Moving all extremities -Patient CT of his cervical spine was negative for acute fracture. Discussed with Dr. Mills. Will d/c cervical collar at this time. If patient starts to show any signs of pain or change in motor/neuro exam will replace cervical collar for the next 4 weeks -Patient tolerating PO per RN, ST continue to assess/treat -Rehab consulted, case management working on placement options. Okay to transfer when bed available. -Patient discussed with Dr. Mills Subjective: Unable to obtain Objective: NAD sitting in chair, patient removed collar this am. MAEx4 strength equal and full bilaterally. Not follow commands Catheter Insertion Date: 12/01/17 - Physician Discussed Patient with Dr.: Mills Neurosurgery Physical Exam - Vitals, I&O, Labs I and O 12/06/17 12/07/17 12/08/17 05:59 05:59 05:59 Intake Total 1650 2190 Output Total 1999 1250 Balance -350 940 Intake: Oral (ml) 1650 2190 Output: Urine (ml) 1999 1250 Toilet 1300 350 Urinal 700 900 Other: Intake Quantity Yes Sufficient Number of Voids Incontinence 1 Toilet 1 1 Urinal 1 Vital Signs Temp Pulse Resp BP Pulse Ox 36.3 C 55 L 16 105/75 96 12/07/17 07:10 12/07/17 07:10 12/07/17 07:10 12/07/17 07:10 12/07/17 07:10 Laboratory Results 12/06/17 11:25 12/03/17 05:00 ICD10 Worksheet Patient Problems: Problems Problem Status Onset Fall (on) (from) other stairs and steps, initial encounter Acute Multiple contusions Acute Skull fracture Acute Subarachnoid hemorrhage Acute Subdural hematoma Acute
--- NOTE | 2017-12-07 08:48 | TRAUMAPN ---
Assessment/Plan: Facial trauma status post fall while intoxicated. Sub dural and sub arachnoid hemorrhage. Mastoid fx Unable to clear neck, pt non verbal due to frontal SDH Awake non verbal Occ follow commands appropriately OOB to chair C-Collar in place Intermittently follows commands Unable to complete tertiary survey due to non verbal status B/l orbital ecchymosis resolving RRR CTA Abd soft NT Rehab post discharge family prefers [facility] if available MRI of neck not performed as he is not able to be still for the study. Options are to clear per protocol or keep for 4-6 weeks for safety NS to determine c-spine precautions Objective: Vital Signs Temp Pulse Resp BP Pulse Ox 36.3 C 55 L 16 105/75 96 12/07/17 07:10 12/07/17 07:10 12/07/17 07:10 12/07/17 07:10 12/07/17 07:10 Laboratory Results 12/06/17 11:25 12/03/17 05:00 12/06/17 12/07/17 12/08/17 05:59 05:59 05:59 Intake Total 1650 2190 Output Total 1999 1250 Balance -350 940 PT 13.1 SEC (12.0-15.0) 12/01/17 04:13 INR 0.97 (0.83-1.16) 12/01/17 04:13 - C-Spine Clearance Cervical Spine Cleared: No
[2017-12-07] MEDS: SENNOSIDES 17.6 MG/10 ML UDL PO SCH ×2 (11:14→20:15)
[2017-12-07] MEDS: POLYETHYLENE GLYCOL 3350 17 GM PKT PO SCH ×2 (11:14→20:16)
[2017-12-07] MEDS: ACETAMINOPHEN 325 MG TAB PO PRN ×2 (11:14→20:15)
[2017-12-07] MEDS: FAMOTIDINE 20 MG TAB PO SCH ×2 (11:14→20:16)
[2017-12-07] MEDS: levETIRAcetam 250 MG TAB PO SCH ×2 (11:15→20:15)
--- NOTE | 2017-12-07 13:31 | PDINTPN ---
Tub Operator Progress Note Assessment/Plan: Assessment/plan: 27 M s/p fall downstairs with closed head injury 12/01/16 involving bilateral frontal and temporal lobes. Initially intubated 2/2 poor airway protection, but extubated next day. BAL on vent unremarkable. He has slowly shown signs of improvement but remains nonverbal as of 12/03/16. Eating some, standing occasionally. Seizure activity mentioned at time of injury, but none seen during hospitalization. * TBI- repeat head CT 12/03 showed anticipated increase in bilateral frontal and temporal hemorrhages with edema and subfalcine herniation. Defer to neurosurgery, but clinically with daily improvements per staff and family. Anticipate rehab possibly today. Encouraging that he is starting to use words * Hypoxia- Imaging shows only atelectasis and BAL negative. No evidence of infection at this point and WBC trending down without abx. Continue to hold and add IS when he's able to follow. Low grade fever at the moment. HENDRICKS negative to date * Seizure? remains on keppra * Sodium normalized to 138 on 12/03/17 * OK for rehab from critical care perspective Subjective: no events. Starting to verbalize but not conversant Objective: Vital Signs Temp Pulse Resp BP Pulse Ox 36.3 C 55 L 16 105/75 96 12/07/17 07:10 12/07/17 07:10 12/07/17 07:10 12/07/17 07:10 12/07/17 07:10 Laboratory Results 12/06/17 11:25 12/03/17 05:00 12/06/17 12/07/17 12/08/17 05:59 05:59 05:59 Intake Total 1650 2190 Output Total 1999 1250 Balance -350 940 PT 13.1 SEC (12.0-15.0) 12/01/17 04:13 INR 0.97 (0.83-1.16) 12/01/17 04:13 Physical Exam - Physical Exam General Appearance: no apparent distress EENT: PERRL/EOMI Respiratory: lungs clear, normal breath sounds, No respiratory distress, No accessory muscle use Cardiac/Chest: regular rate, rhythm, No edema Abdomen: non-tender, soft, No distended Skin: normal color, warm/dry, No cyanosis Lymphatic: no adenopathy Extremities: No pedal edema Neuro/Psych: cognition abnormalities ICD10 Worksheet Patient Problems: Problems Problem Status Onset Fall (on) (from) other stairs and steps, initial encounter Acute Multiple contusions Acute Skull fracture Acute Subarachnoid hemorrhage Acute Subdural hematoma Acute
--- NOTE | 2017-12-07 18:08 | ASMTCMCOM ---
CM Note CM Note Notes: Spoke with [facility] today and they state they have to call for patient's insurance auth on Sunday. They will make the decision once the insurance has authorized his rehab stay. CM to call [facility] early on Sunday in case they accept and can admit that day. They are aware patient is ready for d/c. If [facility] denies patient, contact Leti Hawkins to restart the admissions process with [facility] inpatient rehab.CM will follow. Date Signed: 12/07/2017 06:08 PM Electronically Signed By:Geena Otero LCSW
[2017-12-08] MEDS ORDERED: MAGNESIUM CITRATE 300 ML BOTTLE PO ONE (07:54)
--- NOTE | 2017-12-08 07:57 | TRAUMAPN ---
- Problem/Surgery Performed (1) Subdural hematoma Assessment/Plan: 12/04/2017 PAD#3 Assessment: He has multiple intra-cranial injuries that neuro surgery feels are stable: Bilateral subarachnoid hematomas Left parietal subdural Parafalcine hematoma bilateral frontal intraparenchymal hematomas Bilateral frontal epidural vs. subdural hematomas He is more and more interactive (non- verbal). He will drink and eat as food/ liquid is presented to him. He will follow some commands. Plan: Continue observation Plan in-patient rehab 12/05/2017 PAD#4 Assessment: He has been up walking in halls, voided into toilet, used tooth brush but still non-verbal Plan: Will continue hard collar until he is interactive enough for evaluation. 12/06/2017 PAD#5 Assessment: He remains non-verbal but is up walking in [place], brushing teeth, voiding in commode. When in bed, he his hard to arouse. urine cloudy He has a history of multiple ear infections and has been noted to be holding his nose and blown as if to clear ears. TMs clear Plan: As part of plan to transfer to rehab, a reassessment is undertaken. WBC will be checked. UA/urine culture will be checked. 12/08/2017 PAD#7 Assessment: No significant change. C-collar Dc'd yesterday Flatus but still no stool No plans to treat urine culture as UA was unexciting Plan: Will add Mag citrate To [place] on Sunday (2) Skull fracture Assessment/Plan: 12/04/2017 PAD#3 Stable PAD#4 Stable PAD#5 Stable Qualifiers: Encounter type: subsequent encounter Skull bone/location: frontal bone Fracture type: closed (3) Multiple contusions Assessment/Plan: PAD#3 Assessment: Left wrist/elbow/shoulder/periorbital/lip/frontal contusions are stable Plan: await resolution PAD#4 Stable PAD#5 stable Assessment/Plan: PAD#3 Tertiary assessment completed - no new findings. Time spent with parents talking about alcohol use/abuse/physiologic consequences as well as the need for a treatment plan - ~ 25 minutes PAD#4 Family understands and sees slow progression. PAD#5 Assessment: Improving Plan: Transfer to rehab soon PAD#7 To [place] Sunday Subjective: still mainly non-verbal Objective: Vital Signs Temp Pulse Resp BP Pulse Ox 35.9 C L 66 14 119/75 95 12/08/17 06:00 12/08/17 06:00 12/08/17 06:00 12/08/17 06:00 12/08/17 06:00 Laboratory Results 12/06/17 11:25 12/03/17 05:00 12/07/17 12/08/17 12/09/17 05:59 05:59 05:59 Intake Total 2190 2000 Output Total 1250 1950 Balance 940 50 PT 13.1 SEC (12.0-15.0) 12/01/17 04:13 INR 0.97 (0.83-1.16) 12/01/17 04:13 - C-Spine Clearance Cervical Spine Cleared: No Physical Exam - Physical Exam General Appearance: WD/WN, no apparent distress EENT: other (still has periorbital ecchymosis) Neck: other (Collar off) Respiratory: chest non-tender, lungs clear, normal breath sounds Cardiac/Chest: regular rate, rhythm Abdomen: normal bowel sounds, non-tender, soft, other (Flatus but no stool) Male Genitalia: deferred Rectal: deferred Back: Normal inspection Skin: normal color, warm/dry Extremities: normal range of motion, normal inspection (except for left arm contusions ( stable)) Time Spent w/Patient (minutes): 25
[2017-12-08] MEDS: levETIRAcetam 250 MG TAB PO SCH ×2 (08:11→20:30)
[2017-12-08] MEDS: POLYETHYLENE GLYCOL 3350 17 GM PKT PO SCH ×2 (08:11→19:18)
[2017-12-08] MEDS: FAMOTIDINE 20 MG TAB PO SCH ×2 (08:11→20:30)
[2017-12-08] MEDS: SENNOSIDES 17.6 MG/10 ML UDL PO SCH ×2 (08:11→19:18)
--- NOTE | 2017-12-08 09:30 | NEUSURGPN ---
Assessment/Plan: 27 yo male sp fall down stairs while intoxicated on 12/01 -Head CT wo contrast shows bilateral subdural hematomas and scattered subarachoid hemorrhage without midline shift. Patient neuro exam is stable. Will hold off with further imaging unless exam declines. Will need repeat HCT in 4 weeks -Neuro exam- Continues to slowly improve, patient verbalizing more per family. Moving all extremities -Patient CT of his cervical spine was negative for acute fracture. Discussed with Dr. Mills. Will d/c cervical collar at this time. If patient starts to show any signs of pain or change in motor/neuro exam will replace cervical collar for the next 4 weeks -Patient tolerating PO per RN, ST continue to assess/treat -Rehab consulted, case management working on placement options. Okay to transfer when bed available. -Ok to transfer to floor today -Patient discussed with Dr. Mills Subjective: Unable to obtain, no new events per RN Objective: Patient laying in chair Opens eyes to voice Moves BUE, BLE Pupils equal and reactive Neuro Check Frequency: per routine Urinary Catheter in Place: No Catheter Insertion Date: 12/01/17 - Physician Discussed Patient with Dr.: Mills Neurosurgery Physical Exam - Vitals, I&O, Labs I and O 12/07/17 12/08/17 12/09/17 05:59 05:59 05:59 Intake Total 2190 1999 Output Total 1250 1950 Balance 940 50 Intake: Oral (ml) 2190 1999 Output: Urine (ml) 1250 1950 Catheter 550 Toilet 350 Urinal 900 1400 Other: Intake Quantity Yes Sufficient Output Comment Catheter straight cath Number of Voids Toilet 1 Urinal 1 1 Number of Stools Toilet 0 Bladder Scan Volume (ml) Catheter 450 Vital Signs Temp Pulse Resp BP Pulse Ox 36.3 C 61 14 105/71 100 12/08/17 07:55 12/08/17 07:55 12/08/17 07:55 12/08/17 07:55 12/08/17 07:55 Laboratory Results 12/06/17 11:25 12/03/17 05:00 ICD10 Worksheet Patient Problems: Problems Problem Status Onset Fall (on) (from) other stairs and steps, initial encounter Acute Multiple contusions Acute Skull fracture Acute Subarachnoid hemorrhage Acute Subdural hematoma Acute
--- NOTE | 2017-12-08 17:30 | PDINTPN ---
Applied Behavior Science Specialist Progress Note Assessment/Plan: Assessment/plan: 27 M s/p fall downstairs with closed head injury 12/01/16 involving bilateral frontal and temporal lobes. Initially intubated 2/2 poor airway protection, but extubated next day. BAL on vent unremarkable. He has slowly shown signs of improvement but remains nonverbal as of 12/03/16. Eating some, standing occasionally. Seizure activity mentioned at time of injury, but none seen during hospitalization. * TBI- repeat head CT 12/03 showed anticipated increase in bilateral frontal and temporal hemorrhages with edema and subfalcine herniation. Defer to neurosurgery, but clinically with daily improvements per staff and family. Progressing but still impulsive * Hypoxia- resolved * Seizure? remains on keppra * Sodium normalized to 138 on 12/03/17 * OK for rehab from critical care perspective 12/08/17 17:28 Subjective: no events, continues to progress Objective: Vital Signs Temp Pulse Resp BP Pulse Ox 36.6 C 76 20 128/75 H 97 12/08/17 16:00 12/08/17 16:00 12/08/17 16:00 12/08/17 16:00 12/08/17 16:00 Microbiology 12/06/17 13:45 Urine Culture - Final Urine,Clean Catch Staphylococcus Sp Coag Neg Laboratory Results 12/06/17 11:25 12/03/17 05:00 12/07/17 12/08/17 12/09/17 05:59 05:59 05:59 Intake Total 2190 2000 900 Output Total 1250 1950 1300 Balance 940 50 -400 PT 13.1 SEC (12.0-15.0) 12/01/17 04:13 INR 0.97 (0.83-1.16) 12/01/17 04:13 Physical Exam - Physical Exam General Appearance: no apparent distress EENT: PERRL/EOMI Neck: other (collar) Respiratory: lungs clear, decreased breath sounds, No respiratory distress, No accessory muscle use Cardiac/Chest: regular rate, rhythm, No edema Abdomen: non-tender, soft, No distended Skin: normal color, warm/dry, No cyanosis Lymphatic: no adenopathy Extremities: No pedal edema Neuro/Psych: cognition abnormalities ICD10 Worksheet Patient Problems: Problems Problem Status Onset Fall (on) (from) other stairs and steps, initial encounter Acute Multiple contusions Acute Skull fracture Acute Subarachnoid hemorrhage Acute Subdural hematoma Acute
[2017-12-08] MEDS: ACETAMINOPHEN 325 MG TAB PO PRN (20:30)
--- NOTE | 2017-12-09 09:14 | NEUSURGPN ---
Assessment/Plan: 27 yo male sp fall down stairs while intoxicated on 12/01 -Head CT wo contrast shows bilateral subdural hematomas and scattered subarachoid hemorrhage without midline shift. Patient neuro exam is stable. Will hold off with further imaging unless exam declines. Will need repeat HCT in 4 weeks -Neuro exam- Continues to slowly improve, patient verbalizing more per family. Moving all extremities -Patient CT of his cervical spine was negative for acute fracture. Discussed with Dr. Mills. Will d/c cervical collar at this time. If patient starts to show any signs of pain or change in motor/neuro exam will replace cervical collar for the next 4 weeks -Patient tolerating PO per RN, ST continue to assess/treat -Rehab consulted, case management working on placement options. Okay to transfer when bed available. -Patient is floor status -Patient discussed with Dr. Mills Subjective: Unable to assess Objective: Patient laying in bed Opens eyes to voice Moves BUE, BLE Pupils equal and reactive Neuro Check Frequency: per routine Urinary Catheter in Place: No Catheter Insertion Date: 12/01/17 - Physician Discussed Patient with Dr.: Mills Neurosurgery Physical Exam - Vitals, I&O, Labs I and O 12/08/17 12/09/17 12/10/17 05:59 05:59 05:59 Intake Total 1999 2250 Output Total 1950 1301 Balance 50 949 Intake: Oral (ml) 19990 Output: Urine (ml) 1950 901 Bedside Commode 900 Catheter 550 Incontinence 1 Urinal 1400 Liquid Stool (ml) 400 Bedside Commode 400 Other: Output Comment Catheter straight cath Incontinence marble sized stool balls Number of Voids Incontinence 1 Toilet 1 Urinal 1 Number of Stools Bedside Commode 1 Incontinence 1 Toilet 0 Bladder Scan Volume (ml) Catheter 450 Microbiology 12/06/17 13:45 Urine Culture - Final Urine,Clean Catch Staphylococcus Sp Coag Neg Vital Signs Temp Pulse Resp BP Pulse Ox 36.1 C 58 L 14 124/69 H 99 12/09/17 07:56 12/09/17 07:56 12/09/17 07:56 12/09/17 07:56 12/09/17 07:56 Laboratory Results 12/06/17 11:25 12/03/17 05:00 ICD10 Worksheet Patient Problems: Problems Problem Status Onset Fall (on) (from) other stairs and steps, initial encounter Acute Multiple contusions Acute Skull fracture Acute Subarachnoid hemorrhage Acute Subdural hematoma Acute
--- NOTE | 2017-12-09 10:13 | TRAUMAPN ---
- Problem/Surgery Performed (1) Subdural hematoma Assessment/Plan: 12/04/2017 PAD#3 Assessment: He has multiple intra-cranial injuries that neuro surgery feels are stable: Bilateral subarachnoid hematomas Left parietal subdural Parafalcine hematoma bilateral frontal intraparenchymal hematomas Bilateral frontal epidural vs. subdural hematomas He is more and more interactive (non- verbal). He will drink and eat as food/ liquid is presented to him. He will follow some commands. Plan: Continue observation Plan in-patient rehab 12/05/2017 PAD#4 Assessment: He has been up walking in halls, voided into toilet, used tooth brush but still non-verbal Plan: Will continue hard collar until he is interactive enough for evaluation. 12/06/2017 PAD#5 Assessment: He remains non-verbal but is up walking in [place], brushing teeth, voiding in commode. When in bed, he his hard to arouse. urine cloudy He has a history of multiple ear infections and has been noted to be holding his nose and blown as if to clear ears. TMs clear Plan: As part of plan to transfer to rehab, a reassessment is undertaken. WBC will be checked. UA/urine culture will be checked. 12/08/2017 PAD#7 Assessment: No significant change. C-collar Dc'd yesterday Flatus but still no stool No plans to treat urine culture as UA was unexciting Plan: Will add Mag citrate To [facility] on Sunday12/09/2017 PAD#8 Assessment: No significant changes. Still mainly non-verbal. When asked if he was having trouble with word choice, he immediately responded with an " a-huh" Plan: To [facility] tomorrow (2) Skull fracture Assessment/Plan: 12/04/2017 PAD#3 Stable PAD#4 Stable PAD#5 Stable PADS#8 Stable Qualifiers: Encounter type: subsequent encounter Skull bone/location: frontal bone Fracture type: closed (3) Multiple contusions Assessment/Plan: PAD#3 Assessment: Left wrist/elbow/shoulder/periorbital/lip/frontal contusions are stable Plan: await resolution PAD#4 Stable PAD#5 stable PAD#8 resolving Assessment/Plan: PAD#3 Tertiary assessment completed - no new findings. Time spent with parents talking about alcohol use/abuse/physiologic consequences as well as the need for a treatment plan - ~ 25 minutes PAD#4 Family understands and sees slow progression. PAD#5 Assessment: Improving Plan: Transfer to rehab soon PAD#7 To [place] Sunday PAD#8 assessment: Eating well To [facility] tomorrow Subjective: slightly more communicative but barely so Objective: Vital Signs Temp Pulse Resp BP Pulse Ox 36.1 C 58 L 14 124/69 H 99 12/09/17 07:56 12/09/17 07:56 12/09/17 07:56 12/09/17 07:56 12/09/17 07:56 Microbiology 12/06/17 13:45 Urine Culture - Final Urine,Clean Catch Staphylococcus Sp Coag Neg Laboratory Results 12/06/17 11:25 12/03/17 05:00 12/08/17 12/09/17 12/10/17 05:59 05:59 05:59 Intake Total 1999 2250 Output Total 1950 1301 Balance 50 949 PT 13.1 SEC (12.0-15.0) 12/01/17 04:13 INR 0.97 (0.83-1.16) 12/01/17 04:13 - C-Spine Clearance Cervical Spine Cleared: No Physical Exam - Physical Exam General Appearance: WD/WN, no apparent distress, other (still minimally interactive) EENT: other (periorbital and frontal ecchymosis is slowly rtesolving) Respiratory: lungs clear, normal breath sounds Cardiac/Chest: regular rate, rhythm Abdomen: normal bowel sounds (Has had 10 loose stools after mag citrate yesterday), non-tender, soft Male Genitalia: deferred Rectal: deferred Skin: normal color, warm/dry Extremities: other (Left wrist contusion resolved, Left elbow contusion resolving ) Time Spent w/Patient (minutes): 25
[2017-12-09] MEDS: FAMOTIDINE 20 MG TAB PO SCH ×2 (10:30→20:03)
[2017-12-09] MEDS: levETIRAcetam 250 MG TAB PO SCH ×2 (10:30→20:04)
[2017-12-09] MEDS: SENNOSIDES 17.6 MG/10 ML UDL PO SCH (13:03)
[2017-12-09] MEDS: POLYETHYLENE GLYCOL 3350 17 GM PKT PO SCH (13:03)
--- NOTE | 2017-12-09 14:36 | ASMTCMCOM ---
CM Note CM Note Notes: Mother reported in ICU Rounds that they were interested in [facility] admissions. Numerous messages from our In-pt Rehab and message from [facility] needing patient info faxed again. Lft message for our In-pt rehab to disc the Ins auth so that [facility] could obtain auth. Refaxed patient info to [facility]. Collette Tsai CMCherelle [phone] x [phone]. Date Signed: 12/09/2017 02:36 PM Electronically Signed By:Jeri Martinez LCSW
--- NOTE | 2017-12-09 15:20 | PDINTPN ---
Icing [employer]er Progress Note Assessment/Plan: Assessment/plan: 27 M s/p fall downstairs with closed head injury 12/01/16 involving bilateral frontal and temporal lobes. Initially intubated 2/2 poor airway protection, but extubated next day. BAL on vent unremarkable. He has slowly shown signs of improvement but remains nonverbal as of 12/03/16. Eating some, standing occasionally. Seizure activity mentioned at time of injury, but none seen during hospitalization. * TBI- repeat head CT 12/03 showed anticipated increase in bilateral frontal and temporal hemorrhages with edema and subfalcine herniation. Defer to neurosurgery, but clinically with daily improvements per staff and family. Progressing * Hypoxia- resolved * Seizure? remains on keppra * Sodium normalized to 138 on 12/03/17 * now floor status- will sign off Subjective: no events Objective: Vital Signs Temp Pulse Resp BP Pulse Ox 36.1 C 58 L 14 124/69 H 99 12/09/17 07:56 12/09/17 07:56 12/09/17 07:56 12/09/17 07:56 12/09/17 07:56 Microbiology 12/06/17 13:45 Urine Culture - Final Urine,Clean Catch Staphylococcus Sp Coag Neg Laboratory Results 12/06/17 11:25 12/03/17 05:00 12/08/17 12/09/17 12/10/17 05:59 05:59 05:59 Intake Total 1999 2250 900 Output Total 1950 1301 300 Balance 50 949 600 PT 13.1 SEC (12.0-15.0) 12/01/17 04:13 INR 0.97 (0.83-1.16) 12/01/17 04:13 Physical Exam - Physical Exam General Appearance: no apparent distress EENT: PERRL/EOMI Neck: other (collar) Respiratory: lungs clear, normal breath sounds, No respiratory distress, No accessory muscle use Cardiac/Chest: regular rate, rhythm, No edema Abdomen: normal bowel sounds, soft, No distended Skin: normal color, warm/dry, No cyanosis Lymphatic: no adenopathy Extremities: No pedal edema Neuro/Psych: alert, cognition abnormalities ICD10 Worksheet Patient Problems: Problems Problem Status Onset Fall (on) (from) other stairs and steps, initial encounter Acute Multiple contusions Acute Skull fracture Acute Subarachnoid hemorrhage Acute Subdural hematoma Acute
[2017-12-10] MEDS: FAMOTIDINE 20 MG TAB PO SCH ×2 (09:14→19:43)
[2017-12-10] MEDS: levETIRAcetam 250 MG TAB PO SCH ×2 (09:15→19:43)
--- NOTE | 2017-12-10 09:53 | NEUSURGPN ---
Assessment/Plan: Assessment/Plan: 27 yo male sp fall down stairs while intoxicated on 12/01 -Head CT wo contrast shows bilateral subdural hematomas and scattered subarachoid hemorrhage without midline shift. Patient neuro exam is stable. Will hold off with further imaging unless exam declines. Will need repeat HCT in 4 weeks -Neuro exam- Continues to slowly improve, per aide patient verbalized a few sentences last night. Nonverbal for me this morning. Will take time and needs rehab. -Patient CT of his cervical spine was negative for acute fracture. Discussed with Dr. Mills. Will d/c cervical collar at this time. If patient starts to show any signs of pain or change in motor/neuro exam will replace cervical collar for the next 4 weeks -Patient tolerating PO per RN, ST continue to assess/treat -Rehab consulted, case management working on placement options. Okay to transfer when bed available. -Patient is floor status -Patient discussed with Dr. Mills Subjective: Nonverbal this am. Per Aide, this morning more tired and restless, did not want to get up to chair. Reportedly verbalized some last night to aide in room. Objective: Patient laying in bed Nonverbal this am PERRL, ecchymosis around eyelids Opens eyes to voice Moves BUE, BLE Catheter Insertion Date: 12/01/17 - Physician Discussed Patient with Dr.: Mills Neurosurgery Physical Exam - Vitals, I&O, Labs I and O 12/09/17 12/10/17 12/11/17 05:59 05:59 05:59 Intake Total 2250 1300 Output Total 1301 300 900 Balance 949 1000 -900 Intake: Oral (ml) 2250 1300 Output: Urine (ml) 901 300 900 Bedside Commode 900 Incontinence 1 Urinal 300 900 Liquid Stool (ml) 400 Bedside Commode 400 Other: Intake Quantity Yes Sufficient Output Comment Incontinence marble sized stool balls Number of Voids Incontinence 1 Toilet 1 Number of Stools Bedside Commode 1 Incontinence 1 Urinal 1 Vital Signs Temp Pulse Resp BP Pulse Ox 36.2 C 57 L 14 118/73 95 12/10/17 08:19 12/10/17 08:19 12/10/17 08:19 12/10/17 08:19 12/10/17 08:19 Laboratory Results 12/06/17 11:25 12/03/17 05:00 ICD10 Worksheet Patient Problems: Problems Problem Status Onset Fall (on) (from) other stairs and steps, initial encounter Acute Multiple contusions Acute Skull fracture Acute Subarachnoid hemorrhage Acute Subdural hematoma Acute
--- NOTE | 2017-12-10 11:01 | TRAUMAPN ---
- Problem/Surgery Performed (1) Subdural hematoma Assessment/Plan: 12/04/2017 PAD#3 Assessment: He has multiple intra-cranial injuries that neuro surgery feels are stable: Bilateral subarachnoid hematomas Left parietal subdural Parafalcine hematoma bilateral frontal intraparenchymal hematomas Bilateral frontal epidural vs. subdural hematomas He is more and more interactive (non- verbal). He will drink and eat as food/ liquid is presented to him. He will follow some commands. Plan: Continue observation Plan in-patient rehab 12/05/2017 PAD#4 Assessment: He has been up walking in halls, voided into toilet, used tooth brush but still non-verbal Plan: Will continue hard collar until he is interactive enough for evaluation. 12/06/2017 PAD#5 Assessment: He remains non-verbal but is up walking in [place], brushing teeth, voiding in commode. When in bed, he his hard to arouse. urine cloudy He has a history of multiple ear infections and has been noted to be holding his nose and blown as if to clear ears. TMs clear Plan: As part of plan to transfer to rehab, a reassessment is undertaken. WBC will be checked. UA/urine culture will be checked. 12/08/2017 PAD#7 Assessment: No significant change. C-collar Dc'd yesterday Flatus but still no stool No plans to treat urine culture as UA was unexciting Plan: Will add Mag citrate To [facility] on Sunday12/09/2017 PAD#8 Assessment: No significant changes. Still mainly non-verbal. When asked if he was having trouble with word choice, he immediately responded with an " a-huh" Plan: To [facility] tomorrow 12/10/2017 PAD#9 Assessment: Spoke in a complete sentence last night once Otherwise stable without changes Plan: Will recheck labs today Hopefully to [facility] later today (2) Skull fracture Assessment/Plan: 12/04/2017 PAD#3 Stable PAD#4 Stable PAD#5 Stable PADS#8 Stable Qualifiers: Encounter type: subsequent encounter Skull bone/location: frontal bone Fracture type: closed (3) Multiple contusions Assessment/Plan: PAD#3 Assessment: Left wrist/elbow/shoulder/periorbital/lip/frontal contusions are stable Plan: await resolution PAD#4 Stable PAD#5 stable PAD#8 resolving Assessment/Plan: PAD#3 Tertiary assessment completed - no new findings. Time spent with parents talking about alcohol use/abuse/physiologic consequences as well as the need for a treatment plan - ~ 25 minutes PAD#4 Family understands and sees slow progression. PAD#5 Assessment: Improving Plan: Transfer to rehab soon PAD#7 To [place] Sunday PAD#8 assessment: Eating well To [place] tomorrow Subjective: Still minimally interactive Objective: Vital Signs Temp Pulse Resp BP Pulse Ox 36.2 C 57 L 14 118/73 95 12/10/17 08:19 12/10/17 08:19 12/10/17 08:19 12/10/17 08:19 12/10/17 08:19 Laboratory Results 12/06/17 11:25 12/03/17 05:00 12/09/17 12/10/17 12/11/17 05:59 05:59 05:59 Intake Total 2250 1300 Output Total 1301 300 900 Balance 949 1000 -900 PT 13.1 SEC (12.0-15.0) 12/01/17 04:13 INR 0.97 (0.83-1.16) 12/01/17 04:13 - C-Spine Clearance Cervical Spine Cleared: No Physical Exam - Physical Exam General Appearance: other (as usual very difficult to arouse) Respiratory: lungs clear Time Spent w/Patient (minutes): 15
[2017-12-10 11:56] LABS: PLATELET COUNT 368 10^3/uL (150-400)
--- NOTE | 2017-12-10 14:08 | ASMTCMCOM ---
CM Note CM Note Notes: Contacted [facility]. They have received our faxes on patient but won't have bed availability until later next week. Patient is ready for In-pt Rehab now and really needs to start. Need to talk with parents for a change in plans. Date Signed: 12/10/2017 02:08 PM Electronically Signed By:Jeri Martinez LCSW
--- NOTE | 2017-12-10 14:08 | PDIAF ---
- Diagnosis Code Status: Full Code - Medication Management Discharge Medications: Medications to Continue on Transfer Acetaminophen [Tylenol 325mg (*)] 650 mg PO Q6H PRN tab 12/10/17 [Last Taken Unknown] Famotidine [Pepcid 20 MG (*)] 20 mg PO BID tab 12/10/17 [Last Taken Unknown] levETIRAcetam [Keppra 250 mg (*)] 750 mg PO BID 40 Days tab 12/10/17 [Last Taken Unknown] Discharge Medications: Refer to the Discharge Home Medication list for PRN reason. - Orders Services needed: Registered Nurse, Certified Quick Service Technician, Physical Therapy, Occupational Therapy, Speech Language Pathologist Diet Recommendation: no restrictions on diet Diet Texture: Regular Texture Diet, Thin Liquids, Meds Whole w/Liquids - Follow Up Care Current Providers and Referrals: Skyler Mills MD [Medical Doctor] - 01/07/19 (Needs a follow up head CT and subsequent office visit in 4 weeks ( ~ 01/07) Call for an appointment) Patient,NotPresent [Primary Care Provider] - As per Instructions
--- NOTE | 2017-12-10 14:39 | GDS ---
[f rep st] TRANSFER SUMMARY This is dictated in anticipation of transfer to [facility] either on the or the 11 of December. DISCHARGE DIAGNOSES: 1. Alcohol intoxication. (383). 2. Fall down stairs with bilateral subdural hematomas, with extensive subarachnoid hemorrhage. 3. Small intraparenchymal contusions. 4. Nondepressed left frontal and left mastoid sinus fractures. CONDITION AT DISCHARGE: He is stable, eating on his own, poorly communicative, but able to ambulate. His condition is considered fair. He will be transferred to [facility] for further rehabilitation. DIET AT DISCHARGE: No restrictions. Regular texture. He is supposed to have thin liquids and meals with whole liquids. MEDICATIONS: He will continue Tylenol 650 mg every 6 hours as needed for mild pain. He will continue his Pepcid 20 mg twice a day and Keppra 750 mg b.i.d. ACTIVITY/RESTRICTIONS: He needs a sitter and frame gate mortiser operator while walking. He may need restraints when in better chair. FOLLOWUP: Recommended with Dr. Jamie Mills on 01/07/2018 after having had a followup head CT. HOSPITAL COURSE: The patient was admitted and has slowly become slightly more interactive. Occasionally, he will speak. Occasionally, he will identify his mother by name but generally is difficult to arouse. His contusions, (left elbow, left wrist, left mastoid, and bilateral raccoon eyes) are all slowly resolving. He is stable for transfer at this point. This is dictated in anticipation of transfer. . /[id number]/MODL MTDD
--- NOTE | 2017-12-10 16:59 | ASMTCMCOM ---
CM Note CM Note Notes: Spoke w/Ramon at [facility] [facility] today and they will not have bed available until Sunday of next week. Discussed w/pt's parents who were very disappointed b/c they stated that this was where they wanted him to go in [facility] [address] and wished it had been pursued earlier. Their next choice is [facility] Inpt Rehab. Spoke w/Laura Wang at Inpt rehab and [facility] will [facility] to see if we can speed along process of obtaining auth again. Pt's family are anxious for pt to start rehab. All of this discussed w/Dr Brennan. This will need to be addressed by CM early AM on Sunday as pt is ready for dc. Date Signed: 12/10/2017 04:58 PM Electronically Signed By:Kim Ball RN
--- NOTE | 2017-12-11 07:56 | NEUSURGPN ---
Assessment/Plan: 27 yo male sp fall down stairs while intoxicated on 12/01 -Head CT wo contrast shows bilateral subdural hematomas and scattered subarachoid hemorrhage without midline shift. Patient neuro exam is stable. Will hold off with further imaging unless exam declines. Will need repeat HCT in 4 weeks -Neuro exam- Continues to slowly improve, "grunting" this am, no sentences. Will take time and needs rehab. -Patient CT of his cervical spine was negative for acute fracture. Discussed with Dr. Mills. Cervical collar dc'd. If patient starts to show any signs of pain or change in motor/neuro exam will replace cervical collar for the next 4 weeks -Patient tolerating PO per RN, ST continue to assess/treat -Rehab consulted, case management working on placement options. Okay to transfer when bed available. -Patient is floor status -Patient discussed with Dr. Mills Subjective: Unable to obtain Objective: AAOx3 NAD VSS MAEx4 Follows all commands but nonverbal Motor 5/5 BUE/BLE +LT Urinary Catheter in Place: No Catheter Insertion Date: 12/01/17 - Physician Discussed Patient with : Lina Neurosurgery Physical Exam - Vitals, I&O, Labs I and O 12/10/17 12/11/17 12/12/17 05:59 05:59 05:59 Intake Total 1300 500 Output Total 300 1600 Balance 1000 -1100 Intake: Oral (ml) 1300 500 Output: Urine (ml) 300 1600 Toilet 700 Urinal 300 900 Other: Intake Quantity Yes Sufficient Number of Voids Toilet 1 Number of Stools Urinal 1 Vital Signs Temp Pulse Resp BP Pulse Ox 36.6 C 81 18 123/75 H 97 12/10/17 18:58 12/10/17 18:58 12/10/17 18:58 12/10/17 18:58 12/10/17 18:58 Laboratory Results 12/10/17 11:50 12/10/17 11:50 ICD10 Worksheet Patient Problems: Problems Problem Status Onset Fall (on) (from) other stairs and steps, initial encounter Acute Multiple contusions Acute Skull fracture Acute Subarachnoid hemorrhage Acute Subdural hematoma Acute
[2017-12-11] MEDS: levETIRAcetam 250 MG TAB PO SCH (09:23)
[2017-12-11] MEDS: FAMOTIDINE 20 MG TAB PO SCH (09:23)
[2017-12-11 10:48] VITALS: BP 106/64; PULSE 65; RESP 15; TEMP 97.5; O2SAT 93
--- NOTE | 2017-12-11 11:41 | TRAUMAPN ---
Assessment/Plan: clinically resolving CHI/SAH, accepted at [facility] persistant leukocytosis without fever-likely due to head injury Plan: repeat cbc shows declining wbc, UA negative, anticipate transfer to rehab later today discussed with Dr. Mo Subjective: s/p fall with CHI/SAH altered level of consciousness, with first verbalization earlier today according to Mother. currently sleeping/not arousable Objective: Vital Signs Temp Pulse Resp BP Pulse Ox 36.4 C 65 15 106/64 93 12/11/17 08:00 12/11/17 08:00 12/11/17 08:00 12/11/17 08:00 12/11/17 08:00 Laboratory Results 12/10/17 11:50 12/10/17 11:50 12/10/17 12/11/17 12/12/17 05:59 05:59 05:59 Intake Total 1300 500 Output Total 300 1600 Balance 1000 -1100 PT 13.1 SEC (12.0-15.0) 12/01/17 04:13 INR 0.97 (0.83-1.16) 12/01/17 04:13 - C-Spine Clearance Cervical Spine Cleared: Yes Provider who Cleared Cervical Spine: Dr Mills/negative CT Physical Exam - Physical Exam General Appearance: no apparent distress, other (somnolent) EENT: other (dysconjugate gaze/[id number]) Neck: other (bruising left post auricular) Respiratory: lungs clear, normal breath sounds Cardiac/Chest: regular rate, rhythm Abdomen: non-tender, soft Male Genitalia: deferred Rectal: deferred Back: Normal inspection Skin: normal color, warm/dry Lymphatic: no adenopathy Extremities: other (bruising left elbow/FROM without deformity) Neuro/Psych: cognition abnormalities, other (non-communicative currently/mother reports he was talking earlier today)
[2017-12-11 12:20] LABS: PLATELET COUNT 373 10^3/uL (150-400)
--- NOTE | 2017-12-11 14:35 | PDIAF ---
- Diagnosis Code Status: Full Code - Medication Management Discharge Medications: Medications to Continue on Transfer Acetaminophen [Tylenol 325mg (*)] 650 mg PO Q6H PRN tab 12/10/17 [Last Taken Unknown] Famotidine [Pepcid 20 MG (*)] 20 mg PO BID tab 12/10/17 [Last Taken Unknown] levETIRAcetam [Keppra 250 mg (*)] 750 mg PO BID 40 Days tab 12/10/17 [Last Taken Unknown] Discharge Medications: Refer to the Discharge Home Medication list for PRN reason. - Orders Services needed: Registered Nurse, Certified Logistics Supply Officer, Physical Therapy, Occupational Therapy, Speech Language Pathologist Diet Recommendation: no restrictions on diet, other (no EtOH) Diet Texture: Regular Texture Diet, Thin Liquids, Meds Whole w/Liquids [place]: No - Labs/Radiology CBC w/diff Date: 12/12/17 - Follow Up Care Current Providers and Referrals: Skyler Mills MD [Medical Doctor] - 01/07/19 (Needs a follow up head CT and subsequent office visit in 4 weeks ( ~ 01/07) Call for an appointment) Patient,NotPresent [Primary Care Provider] - As per Instructions
--- NOTE | 2017-12-11 17:13 | ASMTCMCOM ---
CM Note CM Note Notes: Insurance authorization is in for [facility] inpatient rehab; [facility] transport came at 16:00. Orders to be obtained in [employer]. Date Signed: 12/11/2017 05:12 PM Electronically Signed By:ALESSANDRA Onofre
--- NOTE | 2017-12-11 17:14 | ASDISCHSUM ---
Discharge Information Plan Status:Inpatient Rehab Medically Cleared to Leave: Discharge Date:12/11/2017 04:19 PM CM D/C Disposition:[facility] ADT D/C Disposition:Other Rehab, Not [facility] Projected Discharge Date:12/10/2017 11:00 AM Transportation at D/C:ALS/BLS Discharge Delay Reason: Follow-Up Date:12/10/2017 11:00 AM Discharge Slot: Final Diagnosis:ETOH fall: Skull Fx, SAH Placement Information Referral Type:Rehabilitation Hospital Referral ID:[id number] Provider Name:[facility] Address 1:[address] Phone Number: Address 2: Fax Number: City:[place] Selection Factors: State:[place] Patient Contact Information Contact Name:SOPHIA Relationship:Mother Address:[address] Work Phone: [facility]:[place] Alternate Phone: State/Zip Code:[place] [address] Email: Financial Information Financial Class:[employer] [facility] Primary [facility] Desc[facility] Primary Plan Number:[id number] Secondary Plan Desc: Secondary Plan Number: Assessment Information [facility] CM Progress Note CM Note CM Note Notes: Pt was admitted with SDH, SAH after a fall down stairs while intoxicated. Intubated and sedated due to combativeness, hoping to extubate soon. Parents arrived this morning. PT/OT/SLT evals pending. CM will follow for any d/c needs. Date Signed: 12/01/2017 03:24 PM Electronically Signed By:ALESSANDRA Alas [facility] CM Progress Note CM Note CM Note Notes: Patient has [employer] ins, parents live in [place], In-pt Rehab following his progress, may be ready for Rehab in 2-3 days. Gave this info to admissions. Date Signed: 12/04/2017 05:01 PM Electronically Signed By:Jeri Martinez LCSW [facility] CM Progress Note CM Note CM Note Notes: Spoke with patient's mother and gave her a list of rehab programs to review for patient. Included was [facility], 2 locations of [place], and [facility] inpatient rehab. Dr. Mills has recommended a facility named [facility] to Joanna, patient's mother. Requested Joanna let us know when she has made a decision about the program they choose. CM will follow. Date Signed: 12/05/2017 12:44 PM Electronically Signed By:Geena Otero LCSW [facility] CM Progress Note CM Note CM Note Notes: Spoke with patient's mother who states [facility] is their first choice for rehab. A referral was sent to [facility]. Joanna states if insurance does not cover [facility], they will opt for [facility] Inpatient rehab. Left a message for [facility]. CM will follow. Date Signed: 12/06/2017 02:10 PM Electronically Signed By:Geena Otero LCSW [facility] CM Progress Note CM Note CM Note Notes: Spoke with [facility] today and they state they have to call for patient's insurance auth on Sunday. They will make the decision once the insurance has authorized his rehab stay. CM to call [facility] early on Sunday in case they accept and can admit that day. They are aware patient is ready for d/c. If [facility] denies patient, contact Leti Hawkins to restart the admissions process with [facility] inpatient rehab.CM will follow. Date Signed: 12/07/2017 06:08 PM Electronically Signed By:Geena Otero LCSW [facility] Progress Note CM Note CM Note Notes: Mother reported in ICU Rounds that they were interested in [facility] admissions. Numerous messages from our In-pt Rehab and message from [facility] needing patient info faxed again. t message for our In-pt rehab to disc the Ins auth so that [facility] could obtain auth. Refaxed patient info to [facility]. Cherelle Eubanks CM [phone]. Date Signed: 12/09/2017 02:36 PM Electronically Signed By:Jeri Martinez LCSW [facility] Progress Note CM Note CM Note Notes: Contacted [facility]. They have received our faxes on patient but won't have bed availability until later next week. Patient is ready for In-pt Rehab now and really needs to start. Need to talk with parents for a change in plans. Date Signed: 12/10/2017 02:08 PM Electronically Signed By:Jeri Martinez LCSW [facility] CM Progress Note CM Note CM Note Notes: Spoke w/Ramon at [facility] today and they will not have bed available until Sunday of next week. Discussed w/pt's parents who were very disappointed b/c they stated that this was where they wanted him to go in 1st place and wished it had been pursued earlier. Their next choice is [facility] Inpt Rehab. Spoke w/Laura Wang at Inpt rehab and she will [facility] today to see if we can speed along process of obtaining auth again. Pt's family are anxious for pt to start rehab. All of this discussed w/Dr Brennan. This will need to be addressed by CM early AM on Sunday as pt is ready for dc. Date Signed: 12/10/2017 04:58 PM Electronically Signed By:Kim Ball RN [facility] CM Progress Note CM Note CM Note Notes: Insurance authorization is in for [facility] inpatient rehab; [facility] transport came at 16:00. Orders to be obtained in [facility]. Date Signed: 12/11/2017 05:12 PM Electronically Signed By:ALESSANDRA Onofre Intervention Information
== END 2017-12-11 16:19 | DRG 87 ==
LOC: EDBD 04:00 → F2N 06:15 → F3N 12-09 17:11
PROVIDERS: ADMIT Surgery; ATTEND Surgery
PROC: 0BH17EZ Insertion of Endotracheal Airway into Trachea, Via Natural or Artificial Opening (ICD-10-PCS; principal; 2017-12-01)
PROC: 5A1935Z Respiratory Ventilation, Less than 24 Consecutive Hours (ICD-10-PCS; principal; 2017-12-01)
PROC: 0BJK8ZZ Inspection of Right Lung, Via Natural or Artificial Opening Endoscopic (ICD-10-PCS; 2017-12-02)
PROC: 0BJ Respiratory System, Inspection (ICD-10-PCS; 2017-12-02)
DX: S06.6X0A Traumatic subarachnoid hemorrhage without loss of consciousness, initial encounter (principal); S02.19XA Other fracture of base of skull, initial encounter for closed fracture; S06.5X0A Traumatic subdural hemorrhage without loss of consciousness, initial encounter; R09.02 Hypoxemia; W10.8XXA Fall (on) (from) other stairs and steps, initial encounter; Y90.8 Blood alcohol level of 240 mg/100 ml or more; R40.2421 Glasgow coma scale score 9-12, in the field [EMT or ambulance]; F10.129 Alcohol abuse with intoxication, unspecified
CPT/HCPCS: 80305; 82947-QW; 92507-GN; 92526-GN; 92610-GN; 96374; 97112-GO; 97112-GP; 97116-GP; 97162-GP; 97167-GO; 97530-GO; 97530-GP; 97532-GO; 97535-GO; G0480; J0330; J1953; J2250; J2405; J2704; J3010; J3411; Q9967

== ENCOUNTER 2017-12-11 13:18 | Inpatient (IN) | payer OTHER ==
[2017-12-11] MEDS ORDERED: MAG HYDROX/AL HYDROX/SIMETH 30 ML UDCUP PO PRN (16:20)
[2017-12-11] MEDS ORDERED: MAGNESIUM HYDROXIDE 30 ML UDCUP PO PRN (16:20)
[2017-12-11] MEDS ORDERED: POLYETHYLENE GLYCOL 3350 17 GM PKT PO PRN (16:20)
[2017-12-11] MEDS ORDERED: BISACODYL 10 MG SUPP PR PRN (16:20)
--- NOTE | 2017-12-11 17:38 | PDOREHIP ---
Admission [facility] - Admission - 3 Day Assessment Period Admission Date/Day 1: 12/11/17 Day 2: 12/12/17 Day 3: 12/13/17 - Active Diagnoses Comorbidities and Co-existing Conditions at Admission: 93254. None of the Above - Skin Conditions Unhealed Pressure Ulcer (1 or more/Stage 1 or >)-Admission: 0. No
--- NOTE | 2017-12-11 17:44 | PDGENHP ---
History and Physical History and Physical: History and physical and Post admission physician evaluation and rehabilitation treatment plan Date Admit: 12/11/2017 Date and Time Eval: 12/11/2017 Referring Facility: [facility] Referring MD: Dr. Mills/Dr. Mcdaniels Consulting MDs: Dr. De La Cruz and pulmonology team Rehab Dx: Traumatic brain injury Impairment Group/ Etiologic Dx: 02.22 TBI Date Onset: 12/01/2017 Date Surgery: No neuro surgical procedures, he had a bronchoscopy on 12/01/2017 HPI: This is a 27-year-old male with no past medical history who had a fall down approximately 12 concrete stairs on 12/01/2017 and sustained a traumatic brain injury associated with subdural, subarachnoid, and intraparenchymal hemorrhage, complicated by non depressed left frontal and left mastoid sinus fractures. On EMS arrival his GCS was 11 and he was intoxicated, he then had a GCS of 7 in the emergency department and was intubated. At the scene he was also noted to be incontinent of urine and there was concern about immediate seizure. He has been on Keppra since admission. He was initially followed by Dr. Mills and no surgery was indicated. From a neurological standpoint he was intubated and sedated for a period of time and will was ultimately lifted. His C-spine was cleared radiographically by CT and then he had difficulty keeping his C-collar on and it was ultimately discontinued with the plan to replace it if he develops signs or symptoms of pain or motor or neuro exam changes. His left frontal in mastoid sinus fractures are nonsurgical. His hospital course was also complicated by hyponatremia that has resolved. Hypoxia resolved , bronch was unremarkable on 12/01/2017 On the day of discharge she was noted to have a slightly increased white blood cell count from the prior day, no reported signs or symptoms of infection and he has been afebrile. On discussion with his mother Joanna and his father Shane today, they said that he turned a corner from a functional standpoint this morning and was getting out of bed with someone standing with him, he did basic grooming also has someone standing next to him, and he opened his cell phone comma entered the access code , and sent a sister a text message. They feel that clinically he is doing quite well. He will have. Were he will be extremely sleepy, as was the case when I saw him today. Dr. Mills recommended a follow-up CT scan in 4 weeks. Functional History: Previously he was independent and driving. Currently physical therapy notes that he has 2 person assist for transfers and has poor tolerance to activity. He walked 200 ft with minimum assistance x1 however. Nursing notes that he is continent and exhibiting some automatic behaviors. He is total assist with regards to dressing, moderate to maximum assistance for functional transfers, minimum assistance for sitting balance. He is also lethargic as of notes from yesterday. ADLs were dressed as noted above but IADLs have not been addressed. He has poor safety awareness. He is requiring setup for eating and grooming. Also he is continent of bowel and bladder, no skin issues. ROS: Patient was not interactive enough to participate in review of systems Precautions: His cervical collar was lifted, however if he experiences cervical pain or neuro changes a cervical collar should be instituted, fall precautions Active Comorbidities: Comorbid facial and mastoid fractures as noted above, hyponatremia that is resolved, history of immediate seizure PMH/PSH: Mom notes that he had frequent ear infections as a child and some permanent hearing loss, no other issues, specifically no psychiatric history such as depression, no neurological issues such as prior head injuries Family Hx: Specifically no psychiatric history, neurological history, no headaches Social Hx: Unknown tobacco use, he does use alcohol at times of an unknown quantity, unknown drug use history. Patient plans to discharge home with his parents who live locally in [place]. Worked at [employer], in [place]. Mom works in [employer] Allergies: No known drug allergies Pre-Hosp Meds: None Admit Meds: Tylenol 650 mg q.6 hours p.r.n. for pain Pepcid 20 mg p.o. twice daily Keppra 750 mg p.o. twice daily Physical Exam: VS: Temperature 36.4 blood pressure 106/64, heart rate 65, oxygen saturations were 93% on room air GEN: Normally developed, resting in bed, NAD, sleepy and difficult to arouse but was arousable and said "fuck EYES: Dysconjugate gaze, limited exam. He had records eyes EARS, NOSE, MOUTH, THROAT: MMM, normal dentition CV: Heart RRR, no LE edema, extremities warm. No carotid bruits. RESP: Breathing comfortably, lungs CTAB no wrr GI: Abd with +BS, non distended : No oglesby in place MSK: no contracture noted comma no gross deformities. Head was visibly atraumatic but did not palpate over areas of known fractures SKIN: no rashes or skin breakdown noted PSYCH: Difficult to arouse but arousable, not combative HEME/LYMPH: No supraclavicular lymphadenopathy NEURO: Mental status: Patient was difficult to arouse, full mental status exam and Carver orientation and amnesia test could not be administered Cranial Nerves II-XII could not be assessed, dysconjugate gaze Patient was able to squeeze hands bilaterally on command and give a thumbs up. He did have some spontaneous vocalization that was coherent. Unable to tell if it was appropriate. He is also able to wiggle both feet. Reflexes were 2+ and symmetric in the bilateral upper and lower limbs, he had absent Watkins's and downgoing toes. Was unable to participate in other commands. Results Review: Head CT on admission showed bilateral subarachnoid hemorrhage and left parietal subdural and parafalcine hematoma. The left frontal and left mastoid fracture. On CT chest he had a small mediastinal blood collection. CT head from 12/01/2017 showed increased intraparenchymal hemorrhage in the bilateral frontal lobes and bilateral temporal lobes, increased edema and mass effect. He had left subfalcine herniation. Bilateral frontal extra-axial hyper dense hemorrhages representing developing acute epidural versus subdural hematoma since 12/01. The exam was personally visualized and he had extensive frontal and temporal lobe damage. There was no MRI to visualize. Labs included white blood cell count from 12/11/2017 that was 11.5, down from 14.06 the day before, predominantly neutrophils, bandemia. UA negative. Assessment and Plan: 27-year-old male status post a severe traumatic brain injury on 12/01/2017 complicated by intoxication at the time, left frontal bone and left mastoid sinus fractures with resolved hyponatremia and history of immediate seizure without additional seizures observed in the hospital. Severe traumatic brain injury, impairments in mobility, self-care, and cognition : Last CT scan of the head was on 12/09/2017 and did show some increase in areas of bleeding at that time. He has done well clinically since that time and has done particularly well clinically today. Neurosurgery anticipates the next scheduled CT head in 4 weeks. He is followed by Dr. Mills. He will benefit from inpatient rehab for PT, OT, and speech therapy for the deficits noted above. Fall precautions. Low threshold for future neuro imaging including MRI. Immediate seizures without recurrence, TBI related: He has an elevated lifetime risk for seizures after head injury, however his only observe seizure was immediately at the time of injury. He has not had any otherwise earlier late seizures. Current recommendations are for seizure prophylaxis for 7 days following injury and then to stop. Plan to discontinue Keppra after short taper. Family is aware that the patient may yet have a seizure in the future but continuation of prophylaxis at this point will not change the risk of late seizures. Impulsive. No seizure precautions needed. Implementing Agitated Behavior Scale, implementing roll belt for positional support when in wheelchair. Cervical spine clearance level: He was cleared by the Trauma Team radiographically and behaviorally has been tolerating the absence of the cervical collar. He is here to developed pain or new neurological findings including weakness, we would replace the cervical collar at that time. Status post trauma: I was notified by the academic coordinator that the patient has not been aware enough to effectively complete the tertiary trauma clearance. Continue to monitor for any signs or symptoms suggesting other injuries Hyponatremia associated with traumatic brain injury: This appears to have resolved, continue to monitor periodic electrolytes Elevated white blood cell count with bandemia: No signs or symptoms of infection appreciated on exam, urinalysis pending. Continue to monitor closely. Code Status: Full code Proph: SCDs, consider starting Lovenox after discussion with neurosurgery when appropriate given his last CT scan was not yet stable Skin: No skin breakdown, continue to monitor and assess mobility ELOS/ Dispo: Plan to discharge home with family assistance available 24 hr a day, 7 days a week. Anticipate 21 days with outpatient therapies to follow. The patient is medically stable for participation in inpatient rehabilitation. I have reviewed the Preadmission Screen, and do not identify any relevant changes in the patients status since this was completed. He will need a modified program because of the need for frequent breaks initially. I anticipate that the patient will discharge with minimum assistance needed for cognitive tasks, and be modified independent for mobility and standby assistance for self-care, likely requiring cuing and constant supervision for some period of time. The patient is at high risk for posttraumatic headaches for which we will monitor clinically, dizziness and will monitor clinically for need of further vestibular testing, sleep disruption which will monitor clinically and use behavioral intervention. He is also at risk of visual changes will monitor clinically. He is at risk of worsening hyponatremia and we will monitor periodic labs and monitor clinical fluid status. He is at high risk for mood changes and adjustment disorder will monitor clinically and include behavioral coping strategies. He is at risk for agitation and delirium and will monitor clinically, control environmental situations and stimuli and reorient as needed. Consider medications as needed. He is at high risk for endocrine dysfunction will monitor clinically intestines needed. He is also at risk for seizures and will monitor clinically. Will also monitor for symptoms of hydrocephalus is he is a as high risk for this as well. He is also at high risk for urinary tract infection will monitor the previously ordered urinalysis and monitor clinically. He is also at high risk for DVT and we will monitor clinical exam and consider further workup as needed in start chemo prophylaxis for DVT as necessary. He is also high risk for heterotopic ossification will monitor clinically and consider further diagnostic assessments as indicated.
[2017-12-11] MEDS: levETIRAcetam 500 MG TAB PO SCH (19:51)
[2017-12-11] MEDS: SENNOSIDES/DOCUSATE SODIUM TAB PO SCH (19:51)
[2017-12-11] MEDS: FAMOTIDINE 20 MG TAB PO SCH (19:51)
[2017-12-11] MEDS: ACETAMINOPHEN 325 MG TAB PO PRN (23:04)
--- NOTE | 2017-12-12 09:10 | SOAPPROG ---
SOAP Progress Note Assessment/Plan: Assessment: 27-year-old male status post a severe traumatic brain injury on 12/01/2017 with intraparenchymal hemorrhage in the bilateral frontal lobes and bilateral temporal lobes, bilateral frontal extradural hemorrhage in epidural versus subdural space, complicated by intoxication at the time, left frontal bone and left mastoid sinus fractures, with resolved hyponatremia and history of immediate seizure without additional seizures observed in the hospital. * TBI. Impaired balance and mobility, mod - max assist for transfers and ADLs. * PT and OT to optimize mobility and ADLs towards discharge home with family at SBA to modified independent level. * Cognitive impairment s/p TBI. * MATH AND PHYSICS INSTRUCTOR to optimize cognitive function and communication. * Sitter for safety due to impulsivity. * Low stimulation, monitor sleep. Agitated behavior scale 23 last night. * Risk for seizure. May have had an early seizure. Has completed > 7 days anticonvulsant. Taper and D/C levetiracetam. Seizure precautions. * C-spine clearance was done by imaging alone. Monitor for signs/symptoms of neck pain or neurologic compromise. * Hyponatremia, resolved. * Leukocytosis. No S/Sx infection. * EtOH intoxication. Has been treated with thiamine IV in the hospital. Out of the window for withdrawal. * Prophylaxis, Anticoagulation relatively contraindicated with recent brain hemorrhages. Will have SCDs. Hope to mobilize rapidly to reduce risk for DVT/ PE. Follow-up: repeat head CT in 4 weeks, approximately January 07, 2018. 12/12/17 09:48 Subjective: No complaints. Minimal automatic verbal response. Objective: Vital Signs Temp Pulse Resp BP Pulse Ox 36.8 C 71 16 120/79 94 12/12/17 08:00 12/12/17 08:00 12/12/17 08:00 12/12/17 08:00 12/12/17 08:00 12/11/17 12/12/17 12/13/17 05:59 05:59 05:59 Intake Total 700 Output Total 1000 Balance -300 Physical Exam - Physical Exam General Appearance: WD/WN, alert, no apparent distress Neck: full range of motion Respiratory: normal breath sounds, No crackles, No rhonchi, No wheezing Cardiac/Chest: regular rate, rhythm, No edema, No diastolic murmur, No systolic murmur Skin: normal color, warm/dry, other (Faint bruise center of forenead. Bruising superior eye socket L > R, and upper eyelids.) Neuro/Psych: alert, normal mood/affect, other (Moves all extremities.) ICD10 Worksheet Patient Problems: Problems Problem Status Onset Fall (on) (from) other stairs and steps, initial encounter Acute Multiple contusions Acute Skull fracture Acute Subarachnoid hemorrhage Acute Subdural hematoma Acute
[2017-12-12] MEDS: SENNOSIDES/DOCUSATE SODIUM TAB PO SCH ×2 (13:43→21:43)
[2017-12-12] MEDS: FAMOTIDINE 20 MG TAB PO SCH ×2 (13:44→21:43)
[2017-12-12] MEDS: levETIRAcetam 500 MG TAB PO SCH ×2 (13:44→21:43)
[2017-12-12] MEDS: ACETAMINOPHEN 325 MG TAB PO PRN (17:45)
[2017-12-13] MEDS: ACETAMINOPHEN 325 MG TAB PO PRN (07:43)
[2017-12-13] MEDS: levETIRAcetam 500 MG TAB PO SCH (08:27)
[2017-12-13] MEDS: SENNOSIDES/DOCUSATE SODIUM TAB PO SCH ×2 (08:27→21:39)
[2017-12-13] MEDS: FAMOTIDINE 20 MG TAB PO SCH ×2 (08:27→21:39)
--- NOTE | 2017-12-13 08:45 | SOAPPROG ---
SOAP Progress Note Assessment/Plan: 27-year-old male status post a severe traumatic brain injury on 12/01/2017 with intraparenchymal hemorrhage in the bilateral frontal lobes and bilateral temporal lobes, bilateral frontal extradural hemorrhage in epidural versus subdural space, complicated by intoxication at the time, left frontal bone and left mastoid sinus fractures, with resolved hyponatremia and history of immediate seizure without additional seizures observed in the hospital. Today's update: Agitated behavior Scale has generally been rather low, not recorded last night. Appears that he tends to have restless type behavior at night but not during the day. Otherwise sleeping fairly well. Also seems to have some headache that he is not always reporting her able to verbalize. Scheduling acetaminophen, consider amitriptyline for both helping at night and prophylactically treating headache. A total of 25 min was spent on the floor in the care of the patient, the majority of which was spent counseling and coordination of care regarding agitation monitoring. * TBI. Impaired balance and mobility, mod - max assist for transfers and ADLs. * PT and OT to optimize mobility and ADLs towards discharge home with family at A to modified independent level. * possible posttraumatic headache: Likely TBI related, he poorly relates his pain level * Schedule acetaminophen * Plan to discuss amitriptyline with family * Cognitive impairment s/p TBI. * DRY BOX OPERATOR to optimize cognitive function and communication. * Sitter for safety due to impulsivity. * Low stimulation, monitor sleep. * Risk for seizure. May have had an early seizure. Has completed > 7 days anticonvulsant. Stopping levetiracetam as he is also chewing it. * C-spine clearance was done by imaging alone. Monitor for signs/symptoms of neck pain or neurologic compromise. To date he has not had complaints of neck pain and no new neurological findings. * Hyponatremia, resolved. Monitor * Leukocytosis. No S/Sx infection. Monitor * EtOH intoxication. Has been treated with thiamine IV in the hospital. Out of the window for withdrawal. Monitor * Prophylaxis, Anticoagulation relatively contraindicated with recent brain hemorrhages. Will have SCDs. Hope to mobilize rapidly to reduce risk for DVT/ PE. Follow-up: repeat head CT in 4 weeks, approximately January 07, 2018. Dispo: Home with family and 24 hr assistance, approximately 21 days from admission. 12/13/17 08:40 12/13/17 08:47 Subjective: Chief complaint: Neurological stability No acute events overnight. Patient was reportedly sleeping well from 8:00 p.m. to 3:00 a.m. at which point he woke up and was somewhat restless. Patient does not answer directed review of systems questions with any consistency. Nurse reports he had some pain behavior surrounding his head. No new concerns from nursing or staff. Family was not in the room to discuss. Objective: Vital Signs Temp Pulse Resp BP Pulse Ox 36.9 C 101 H 16 100/67 93 12/12/17 20:00 12/12/17 20:00 12/12/17 20:00 12/12/17 20:00 12/12/17 20:00 12/12/17 12/13/17 12/14/17 05:59 05:59 05:59 Intake Total 700 994 200 Output Total 1900 500 200 Balance -1200 494 0 Physical Exam - Physical Exam General Appearance: WD/WN, alert, no apparent distress EENT: other (Dysconjugate gaze, periorbital bruising), No scleral icterus (R), No scleral icterus (L) Respiratory: No respiratory distress, No accessory muscle use Cardiac/Chest: normal peripheral pulses, regular rate, rhythm, No edema Skin: normal color, warm/dry, No cyanosis, No diaphoresis Extremities: non-tender, normal inspection, No pedal edema, No swelling Neuro/Psych: alert, speech abnormalities (Paucity of speech), No normal mood/ affect (Flat affect, not responding to questions about mood), No oriented x 3 ( Oriented to self) ICD10 Worksheet Patient Problems: Problems Problem Status Onset Fall (on) (from) other stairs and steps, initial encounter Acute Multiple contusions Acute Skull fracture Acute Subarachnoid hemorrhage Acute Subdural hematoma Acute
[2017-12-13] MEDS ORDERED: ACETAMINOPHEN 500 MG TAB PO SCH (18:00)
[2017-12-13] MEDS: AMITRIPTYLINE HCL 25 MG TAB PO SCH (21:39)
[2017-12-14] MEDS ORDERED: ACETAMINOPHEN 500 MG TAB PO SCH (03:30)
[2017-12-14 09:22] LABS: PLATELET COUNT 389 10^3/uL (150-400)
[2017-12-14] MEDS: SENNOSIDES/DOCUSATE SODIUM TAB PO SCH ×2 (09:46→20:08)
[2017-12-14] MEDS: FAMOTIDINE 20 MG TAB PO SCH ×2 (09:46→20:08)
[2017-12-14] MEDS: ACETAMINOPHEN 500 MG TAB PO SCH ×2 (15:17→23:02)
[2017-12-14] MEDS ORDERED: FLU VACC QS 2017-18 (3YR+)/PF 0.5 ML SYR (FLUARIX QUAD) IM ONE (16:27)
--- NOTE | 2017-12-14 17:00 | SOAPPROG ---
SOAP Progress Note Assessment/Plan: Assessment: * TBI. Impaired balance and mobility, mod - max assist for transfers and ADLs. STAFF MEETING TODAY WITH CONSENSUS THE PATIENT MAY BENEFIT FROM A LOW-DOSE STIMULANT DUE TO IMPAIRED CONCENTRATION AND INCONSISTENT ABILITY TO PARTICIPATE IN THERAPIES DUE TO FATIGUE. DISCUSSED WITH PHARMACY REGARDING POSSIBLE CROSS REACTION WITH AMITRIPTYLINE, HOWEVER RITALIN MAY ALSO LOWER SEIZURE THRESHOLD AND THEREFORE WILL DEFER TO DR ENRIQUEZ. * PT and OT to optimize mobility and ADLs towards discharge home with family at A to modified independent level. * possible posttraumatic headache: Likely TBI related, he poorly relates his pain level * Schedule acetaminophen * Plan to discuss amitriptyline with family * Cognitive impairment s/p TBI. 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 * Sitter for safety due to impulsivity. * Low stimulation, monitor sleep. . * Risk for seizure. May have had an early seizure. Has completed > 7 days anticonvulsant. Stopping levetiracetam as he is also chewing it. * C-spine clearance was done by imaging alone. Monitor for signs/symptoms of neck pain or neurologic compromise. To date he has not had complaints of neck pain and no new neurological findings. Will obtain cervical spine flex/ext films r/o instability. * Hyponatremia, resolved. Na 146. Will repeat BMP for am. * Leukocytosis. No S/Sx infection. Monitor. WBC 10.46 * EtOH intoxication. Has been treated with thiamine IV in the hospital. Out of the window for withdrawal. Monitor * Prophylaxis, Anticoagulation relatively contraindicated with recent brain hemorrhages. Will have SCDs. Hope to mobilize rapidly to reduce risk for DVT/ PE. Plan: 12/14/17 17:03 Subjective: Aphasic. Rehab staff indicates that patient tends to be impulsive it needs redirecting. Attention span waxes and wanes. Patient apparently complains of intermittent headaches and possibly neck pain. Objective: Vital Signs Temp Pulse Resp BP Pulse Ox 37.2 C 82 16 117/88 H 96 12/14/17 07:02 12/14/17 07:02 12/14/17 07:02 12/14/17 07:02 12/14/17 07:02 Laboratory Results 12/14/17 08:08 12/14/17 08:08 12/13/17 12/14/17 12/15/17 05:59 05:59 05:59 Intake Total 994 1087 1030 Output Total 500 1800 955 Balance 494 -982 75 Physical Exam - Physical Exam General Appearance: WD/WN, no apparent distress EENT: other (Voluntarily close his right eye. Rehab staff indicates right visual field deficits.) Neck: full range of motion, supple, other (No paracervical spasm or palpable step-off.), No tender midline Cardiac/Chest: No edema Abdomen: normal bowel sounds, non-tender, soft Neuro/Psych: motor weakness (Difficult to assess secondary to cognitive deficits resulting in inability to follow commands. ), cognition abnormalities , speech abnormalities (ABULIA) ICD10 Worksheet Patient Problems: Problems Problem Status Onset Fall (on) (from) other stairs and steps, initial encounter Acute Multiple contusions Acute Skull fracture Acute Subarachnoid hemorrhage Acute Subdural hematoma Acute
[2017-12-14] MEDS: AMITRIPTYLINE HCL 25 MG TAB PO SCH (20:08)
[2017-12-15] MEDS: ACETAMINOPHEN 500 MG TAB PO SCH ×3 (06:58→21:29)
[2017-12-15] MEDS: FAMOTIDINE 20 MG TAB PO SCH ×2 (08:28→21:30)
[2017-12-15] MEDS: SENNOSIDES/DOCUSATE SODIUM TAB PO SCH ×2 (08:28→21:30)
--- NOTE | 2017-12-15 11:28 | SOAPPROG ---
SOAP Progress Note Assessment/Plan: Assessment/Plan: Mr. Valencia is a 27 y/o male with recent fall resulting in a TBI with associated bifrontal intraparenchymal hemorrhages and a nondepressed skull fracture. * TBI. Impaired balance and mobility, mod - max assist for transfers and ADLs. * PT and OT to optimize mobility and ADLs towards discharge home with family at SBA to modified independent level. * Consider addition of stimulus as indicated pending ability to participate and regular sleep/wake * possible posttraumatic headache: Likely TBI related, he poorly relates his pain level * Schedule acetaminophen * Started amitriptyline - will continue to monitor * Cognitive impairment s/p TBI. 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 * Sitter for safety due to impulsivity. * Low stimulation, monitor sleep. * Risk for seizure. May have had an early seizure. Has completed > 7 days anticonvulsant. Stopping levetiracetam as he is also chewing it. * C-spine clearance was done by imaging alone. Monitor for signs/symptoms of neck pain or neurologic compromise. To date he has not had complaints of neck pain and no new neurological findings. Will obtain repeat cervical spine flex/ ext films r/o instability on 12/17/17. * Hyponatremia, resolved. - Slightly elevated x2 - will encourage fluid intake with sitter/Mother and redraw in morning * Leukocytosis. No S/Sx infection. Monitor. WBC 10.46 * EtOH intoxication. Has been treated with thiamine IV in the hospital. Out of the window for withdrawal. Monitor * Prophylaxis, Anticoagulation relatively contraindicated with recent brain hemorrhages. Will have SCDs. Hope to mobilize rapidly to reduce risk for DVT/ PE. Daily update - overall patient with little restlessness overall. SOLOMON seems to be relatively controlled with tylenol - have discussed other options with mother and she'd like to continue trialling conservative treatment such as limited Computer time, wearing sunglasses, improving sleep cycles. Will repeat CMP/CBC in the morning 12/15/17 11:29 Subjective: No overt complaints of pain during interview - Was squinting one eye when looking at this mortgage or loan underwriter. not demonstrating tactile defensiveness nor significant irritability this morning. Per sitter - did have BM this morning - nicely formed Objective: Vital Signs Temp Pulse Resp BP Pulse Ox 36.9 C 84 15 113/79 94 12/15/17 06:02 12/15/17 06:02 12/15/17 06:02 12/15/17 06:02 12/15/17 06:02 Laboratory Results 12/14/17 08:08 12/15/17 06:10 12/14/17 12/15/17 12/16/17 05:59 05:59 05:59 Intake Total 1087 1947 Output Total 1800 1954 400 Balance -713 -7 -400 Physical Exam - Physical Exam General Appearance: alert, no apparent distress EENT: other (pupils reactive) Respiratory: lungs clear, normal breath sounds Cardiac/Chest: regular rate, rhythm Abdomen: normal bowel sounds, non-tender Male Genitalia: other (No evidence of any yeast infection in the inguinal/ periscortal area) Skin: normal color Extremities: other (no edema) Neuro/Psych: alert ICD10 Worksheet Patient Problems: Problems Problem Status Onset Fall (on) (from) other stairs and steps, initial encounter Acute Multiple contusions Acute Skull fracture Acute Subarachnoid hemorrhage Acute Subdural hematoma Acute
[2017-12-15] MEDS: AMITRIPTYLINE HCL 25 MG TAB PO SCH (21:30)
[2017-12-16] MEDS: ACETAMINOPHEN 500 MG TAB PO SCH ×3 (05:42→21:03)
[2017-12-16 07:56] LABS: PLATELET COUNT 360 10^3/uL (150-400)
[2017-12-16] MEDS: FAMOTIDINE 20 MG TAB PO SCH ×2 (08:33→21:04)
[2017-12-16] MEDS: SENNOSIDES/DOCUSATE SODIUM TAB PO SCH ×2 (08:33→21:03)
--- NOTE | 2017-12-16 10:00 | SOAPPROG ---
SOAP Progress Note Assessment/Plan: Assessment/Plan: Mr. Valencia is a 27 y/o male with recent fall resulting in a TBI with associated bifrontal intraparenchymal hemorrhages and a nondepressed skull fracture. * TBI. Impaired balance and mobility, mod - max assist for transfers and ADLs. Current Rancho around 4-5 * PT and OT to optimize mobility and ADLs towards discharge home with family at SBA to modified independent level. * Consider addition of stimulus as indicated pending ability to participate and regular sleep/wake * possible posttraumatic headache: Likely TBI related, he poorly relates his pain level * Schedule acetaminophen * Started amitriptyline - will continue to monitor * Cognitive impairment s/p TBI. 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 * Sitter for safety due to impulsivity. * Low stimulation, monitor sleep. * Risk for seizure. May have had an early seizure. Has completed > 7 days anticonvulsant. Stopping levetiracetam as he is also chewing it. * C-spine clearance was done by imaging alone. Monitor for signs/symptoms of neck pain or neurologic compromise. To date he has not had complaints of neck pain and no new neurological findings. Will obtain repeat cervical spine flex/ ext films r/o instability on 12/17/17. * Hyponatremia, resolved. - Slightly elevated x2 - will encourage fluid intake with sitter/Mother a- Redraw not available yet this morning * Leukocytosis. No S/Sx infection. Monitor. WBC 10.46 * EtOH intoxication. Has been treated with thiamine IV in the hospital. Out of the window for withdrawal. Monitor * Prophylaxis, Anticoagulation relatively contraindicated with recent brain hemorrhages. Will have SCDs. Hope to mobilize rapidly to reduce risk for DVT/ PE. Daily update - ABS remains around 20 -points usually 2/2 refusing intermittent cares. Therapists doing well to adapt to pt's schedule of participation. Overall with less distention today and continues to have daily bm's. Slept a bit better last night - up to 6 hrs. Tolerating the recent addition of the amitriptyline well. Spent time providing some education to mother about progression of BI and current behaviors that patient demonstrating. CBC within normal limits. Awaiting repeat BMP - had asked sitter to really work on fluid intake - will adjust as needed based on results 12/16/17 09:57 Subjective: No new complaints per patient- per overnight ABS remains around 20 - more that patient refusing to participant - has demonstrated aggressive or tactile defensiveness. Pt without complaints of pain during his exam. Have daily bm's Objective: Vital Signs Temp Pulse Resp BP Pulse Ox 36.9 C 77 16 124/79 H 94 12/16/17 05:23 12/16/17 05:23 12/16/17 05:23 12/16/17 05:23 12/16/17 05:23 Laboratory Results 12/16/17 06:00 12/15/17 06:10 12/15/17 12/16/17 12/17/17 05:59 05:59 05:59 Intake Total 1947 1385 Output Total 811 1403 Balance -7 -389 Physical Exam - Physical Exam General Appearance: alert, no apparent distress Neck: non-tender Respiratory: normal breath sounds Cardiac/Chest: regular rate, rhythm Abdomen: normal bowel sounds, non-tender Skin: normal color Neuro/Psych: alert ICD10 Worksheet Patient Problems: Problems Problem Status Onset Fall (on) (from) other stairs and steps, initial encounter Acute Multiple contusions Acute Skull fracture Acute Subarachnoid hemorrhage Acute Subdural hematoma Acute
[2017-12-16] MEDS: AMITRIPTYLINE HCL 25 MG TAB PO SCH (21:03)
[2017-12-17] MEDS: ACETAMINOPHEN 500 MG TAB PO SCH ×3 (07:06→21:19)
[2017-12-17] MEDS: SENNOSIDES/DOCUSATE SODIUM TAB PO SCH ×2 (07:06→21:21)
[2017-12-17] MEDS: FAMOTIDINE 20 MG TAB PO SCH ×2 (07:07→21:20)
--- NOTE | 2017-12-17 14:22 | SOAPPROG ---
SOAP Progress Note Assessment/Plan: Assessment: 27-year-old male status post a severe traumatic brain injury on 12/01/2017 due to falling down concrete steps while intoxicated on alcohol, with intraparenchymal hemorrhage in the bilateral frontal lobes and bilateral temporal lobes, bilateral frontal extradural hemorrhage in epidural versus subdural space, complicated by left frontal bone and left mastoid sinus fractures, with resolved hyponatremia and history of immediate seizure without additional seizures observed in the hospital. * TBI. Impaired balance and mobility. * Improving. Has ambulated a 1000 ft outside with no assistive device, SBA. SBA for bed mobility and transfers. Standby assist with cues for ADLs. Had reduced endurance and needs frequent bed rest. * PT and OT to optimize mobility and ADLs towards discharge home with family at SBA to modified independent level. * Cognitive impairment s/p TBI. Rancho level 4-5. * Distractible, impaired attention, memory and executive function. 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 * Sitter for safety due to impulsivity. * Low stimulation, monitor sleep. Agitated behavior scale 23 last night. * Has had fluctuating alertness and refusal of therapies due to fatigue at times. * Appears improved today 12/17/2017. * Will not initiate stimulant at this time. * Risk for seizure. May have had an early seizure. Has completed > 7 days anticonvulsant. Discontinued levetiracetam. Seizure precautions. * C-spine clearance was done by imaging alone. Monitor for signs/symptoms of neck pain or neurologic compromise. * Hyponatremia, resolved. * Leukocytosis. No S/Sx infection. * EtOH intoxication. Has been treated with thiamine IV in the hospital. Out of the window for withdrawal. * Prophylaxis, Anticoagulation relatively contraindicated with recent brain hemorrhages. Will have SCDs. Hope to mobilize rapidly to reduce risk for DVT/ PE. Follow-up: repeat head CT in 4 weeks, approximately January 07, 2018. 12/17/17 14:22 Subjective: No complaints initially. On further discussion he denies photophobia but reports double vision with both eyes open. Denies headache or other pain. Thinks he sleeping well. Objective: Vital Signs Temp Pulse Resp BP Pulse Ox 36.9 C 88 16 114/78 94 12/16/17 20:00 12/16/17 20:00 12/16/17 20:00 12/16/17 20:00 12/16/17 20:00 Laboratory Results 12/16/17 06:00 12/17/17 06:00 12/16/17 12/17/17 12/18/17 05:59 05:59 05:59 Intake Total 5033 961 8203 Output Total 1775 Balance -478 194 4972 Physical Exam - Physical Exam General Appearance: WD/WN, alert, no apparent distress Respiratory: No respiratory distress, No accessory muscle use Cardiac/Chest: No edema Skin: normal color, warm/dry, other (Eyelid ecchymosis is resolving.) Neuro/Psych: alert, normal mood/affect, cognition abnormalities (Reduced verbal expansion.), No abnormal gait ICD10 Worksheet Patient Problems: Problems Problem Status Onset Fall (on) (from) other stairs and steps, initial encounter Acute Multiple contusions Acute Skull fracture Acute Subarachnoid hemorrhage Acute Subdural hematoma Acute
[2017-12-17] MEDS: AMITRIPTYLINE HCL 25 MG TAB PO SCH (21:20)
[2017-12-18] MEDS: ACETAMINOPHEN 500 MG TAB PO SCH ×3 (05:13→20:13)
[2017-12-18] MEDS: FAMOTIDINE 20 MG TAB PO SCH ×2 (08:37→20:13)
[2017-12-18] MEDS: SENNOSIDES/DOCUSATE SODIUM TAB PO SCH ×3 (08:38→20:18)
[2017-12-18] MEDS ORDERED: AMANTADINE HCL 100 MG CAP PO ONE (10:05)
--- NOTE | 2017-12-18 10:40 | SOAPPROG ---
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 Today's update: Patient has limited participation because of fatigue and sleepiness. Awake considerable part of the night and sleeping during the day. Counseled patient, family, and staff that consolidating sleep at night is a vital importance. Starting amantadine after discussion with mother, Joanna, with 1st dose today and 100 mg p. o. in the morning and at noon on subsequent days. May increase the dose to 200 mg in the morning and at noon. Discussed the Thera goal risk of increasing the risk of seizures, however studies have indicated that in traumatic brain injury that has not been a problem. Next step would be methylphenidate as a possible adjunct however the risk of increasing the risk of seizures is higher with methylphenidate. A total of 35 min was spent on the floor in the care of the patient, the majority of which was spent in counseling and coordination of care regarding the start of a neuro stimulant * TBI. Impaired balance and mobility. * Improving. Has ambulated a 1000 ft outside with no assistive device, SBA. SBA for bed mobility and transfers. Standby assist with cues for ADLs. Had reduced endurance and needs frequent bed rest. * PT and OT to optimize mobility and ADLs towards discharge home with family at SBA to modified independent level. * Cognitive impairment s/p TBI. Rancho level at least 5, likely 6. O log was 19 as of 12/17 per speech therapy * Distractible, impaired attention, memory and executive function. 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 * Sitter for safety due to impulsivity. * Low stimulation, monitor sleep. Agitated behavior persistently low in the upper teens. * Has had fluctuating alertness and refusal of therapies due to fatigue at times. TBI related * Poor sleep as of morning of 12/18 * Amantadine 100 mg twice daily at morning and noon, discussed with patient and family. Received patient assent and parent consent. * Continue amitriptyline for sleep and headache management. May increase the dose to 200 mg in the morning and at noon. Discussed the Thera goal risk of increasing the risk of seizures, however studies have indicated that in traumatic brain injury that has not been a problem. Next step would be methylphenidate as a possible adjunct however the risk of increasing the risk of seizures is higher with methylphenidate. * Risk for seizure. May have had an early seizure. Has completed > 7 days anticonvulsant. Discontinued levetiracetam. Seizure precautions in place, though likely not necessary. * C-spine clearance was done by imaging alone. Monitor for signs/symptoms of neck pain or neurologic compromise. Normal plain films of the cervical spine during inpatient rehabilitation admission * Hyponatremia, resolved. * Leukocytosis. No S/Sx infection. * EtOH intoxication. Has been treated with thiamine IV in the hospital. Out of the window for withdrawal. * Prophylaxis, Anticoagulation relatively contraindicated with recent brain hemorrhages. Will have SCDs. Hope to mobilize rapidly to reduce risk for DVT/ PE. Follow-up: repeat head CT in 4 weeks, approximately January 07, 2018. Follow up with Dr. Maxwell after discharge Dispo: Home with family and 24 hr assistance 12/13/17 08:40 12/13/17 08:47 12/18/17 10:34 12/18/17 10:42 Subjective: Chief complaint: Disrupted sleep-wake cycles No acute events overnight. Patient did not sleep well and was napping yesterday afternoon. Patient of limited alertness today, but denied any new shortness of breath or chest pain, no new numbness, tingling, or weakness. He was oriented to self and place, but was too sleepy to answer about the date. Discussed on the phone with his mother Joanna the possibility of starting amantadine for neurostimulation, describe risks and benefits including possible increased risk of seizures though less likely with amantadine that other neuro stimulants. Agreed to try this pharmacological option to keep him awake during the day and consolidate sleep at night. Also discussed with staff. Objective: Vital Signs Temp Pulse Resp BP Pulse Ox 36.7 C 78 14 131/77 H 94 12/18/17 08:00 12/18/17 08:00 12/18/17 08:00 12/18/17 08:00 12/18/17 08:00 Laboratory Results 12/16/17 06:00 12/17/17 06:00 12/17/17 12/18/17 12/19/17 05:59 05:59 05:59 Intake Total 780 2810 436 Output Total 1000 Balance 780 1810 436 Physical Exam - Physical Exam General Appearance: no apparent distress, No alert (Sleepy) EENT: No scleral icterus (R), No scleral icterus (L) Respiratory: lungs clear, normal breath sounds, No respiratory distress, No accessory muscle use Cardiac/Chest: normal peripheral pulses, regular rate, rhythm, No edema Skin: normal color, warm/dry, No cyanosis, No diaphoresis Extremities: No pedal edema, No swelling Neuro/Psych: normal mood/affect, No alert, No oriented x 3 (Person and place only, could not answer date because he was sleepy) ICD10 Worksheet Patient Problems: Problems Problem Status Onset Fall (on) (from) other stairs and steps, initial encounter Acute Multiple contusions Acute Skull fracture Acute Subarachnoid hemorrhage Acute Subdural hematoma Acute
[2017-12-18] MEDS: AMITRIPTYLINE HCL 25 MG TAB PO SCH (20:13)
[2017-12-19] MEDS: ACETAMINOPHEN 500 MG TAB PO SCH ×3 (06:39→20:45)
[2017-12-19] MEDS: AMANTADINE HCL 100 MG CAP PO SCH ×2 (06:40→11:44)
[2017-12-19] MEDS: SENNOSIDES/DOCUSATE SODIUM TAB PO SCH ×2 (08:36→20:42)
[2017-12-19] MEDS: FAMOTIDINE 20 MG TAB PO SCH ×2 (08:36→20:45)
--- NOTE | 2017-12-19 12:49 | SOAPPROG ---
SOAP Progress Note Assessment/Plan: Assessment: 27-year-old male status post a severe traumatic brain injury on 12/01/2017 due to falling down concrete steps while intoxicated on alcohol, with intraparenchymal hemorrhage in the bilateral frontal lobes and bilateral temporal lobes, bilateral frontal extradural hemorrhage in epidural versus subdural space, complicated by left frontal bone and left mastoid sinus fractures, with resolved hyponatremia and history of immediate seizure without additional seizures observed in the hospital. * TBI. Impaired balance and mobility. * Initial fem a 44 on 12/14/2017; improved to 76 on 12/19/2017. Has ambulated a 1000 ft outside with no assistive device, SBA and cues for safety. Has climbed 36 stairs. Setup to modified independence with ADLs. Has diplopia treated with alternating I occlusion using tape on clear goggles. * PT and OT to optimize mobility and ADLs towards discharge home with family at supervivsion to modified independent level. * Cognitive impairment s/p TBI. Rancho level 4-5. * OLOG 18, 13, 17 on past 3 days as of 12/19/2017. Distractible, impaired attention, memory and executive function. 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 * Sitter for safety due to impulsivity. * Low stimulation, monitor sleep. * Has had fluctuating alertness and refusal of therapies due to fatigue at times. * Improved with amitriptyline at HS 25 mg to improve sleep. Further improvement with amantadine 100 mg twice daily before breakfast and lunch starting 12/18/2017. Left ear pain. Query whether it is related to mastoid fracture. With retraction of ear drum he may have eustachian dysfunction due to edema. * Continue acetaminophen scheduled. Consider trial of decongestant versus nasal steroid. Chronic/stable conditions: * Risk for seizure. May have had an early seizure. Has completed > 7 days anticonvulsant. Discontinued levetiracetam. Seizure precautions. * C-spine clearance was done by imaging alone. Monitor for signs/symptoms of neck pain or neurologic compromise. * Hyponatremia, resolved. * Leukocytosis. No S/Sx infection. * EtOH intoxication. Has been treated with thiamine IV in the hospital. Out of the window for withdrawal. * Prophylaxis, Anticoagulation relatively contraindicated with recent brain hemorrhages; now with adequate mobility and minimal DVT risk. Will have SCDs. Attended staffing, 15 min. Discussed with case management, dietitian, nursing, PT, OT, TOEING STOCKINGS. 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 Tentative discharge date of 12/27/2017. Follow-up: repeat head CT in 4 weeks, approximately January 07, 2018. 12/19/17 12:49 Subjective: No complaints this morning. He reports interrupted sleep last night; attain sleep well but then awoke several hours later and was awake for several hours. Nurse reports complaint of left ear pain. He confirms left ear pain. He describes it both as sharp and as a pressure [place] Objective: Vital Signs Temp Pulse Resp BP Pulse Ox 36.4 C 79 15 100/69 93 12/19/17 06:46 12/19/17 06:46 12/19/17 06:46 12/19/17 06:46 12/19/17 06:46 Laboratory Results 12/16/17 06:00 12/17/17 06:00 12/18/17 12/19/17 12/20/17 05:59 05:59 05:59 Intake Total 3150 1676 Output Total 1400 Balance 1750 1676 - Time Spent With Patient Time Spent With Patient: Greater than 35 min floor time today, including more than 50% of time in coordination of care during staffing meeting, and counseling patient. Physical Exam - Physical Exam General Appearance: WD/WN, alert, no apparent distress EENT: pharynx normal, TM abnormal (L) (No erythema no discharge. Retracted.), other (No mastoid or periauricular tenderness. No Kwok sign.), No purulent nasal drainage, No rhinorrhea, No pharyngeal erythema, No tonsillar exudate Respiratory: No respiratory distress, No accessory muscle use Skin: normal color, warm/dry Neuro/Psych: alert, normal mood/affect, speech abnormalities (Minimal elaboration) ICD10 Worksheet Patient Problems: Problems Problem Status Onset Fall (on) (from) other stairs and steps, initial encounter Acute Multiple contusions Acute Skull fracture Acute Subarachnoid hemorrhage Acute Subdural hematoma Acute
[2017-12-19] MEDS: AMITRIPTYLINE HCL 25 MG TAB PO SCH (20:46)
[2017-12-20] MEDS: AMANTADINE HCL 100 MG CAP PO SCH ×2 (06:34→13:03)
[2017-12-20] MEDS: ACETAMINOPHEN 500 MG TAB PO SCH ×3 (06:34→20:55)
[2017-12-20] MEDS: SENNOSIDES/DOCUSATE SODIUM TAB PO SCH (10:27)
--- NOTE | 2017-12-20 10:27 | SOAPPROG ---
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 Today's update: Patient much more alert than seen previously, interactive, Rancho level is 6-7. Still having difficulty sleeping at night, plan to start melatonin at bedtime and consider increasing the amitriptyline. I will also discuss with family the possibility of increasing amantadine during the day however this would be lower on the list of priorities. Agitated behavior Scale was 18, all therapies and nurses report that he is much more interactive. A total of 35 min was spent on the floor in the care of the patient, the majority of which was spent in the counseling and coordination of care regarding alertness and sleep. Remainder of plan is unchanged * TBI. Impaired balance and mobility. * Initial FIM 44 on 12/14/2017; improved to 76 on 12/19/2017. Has ambulated a 1000 ft outside with no assistive device, SBA and cues for safety. Has climbed 36 stairs. Setup to modified independence with ADLs. Has diplopia treated with alternating I occlusion using tape on clear goggles. Next set of goals will revolve around IADLs and safety as well as cognition. * PT and OT to optimize mobility and ADLs towards discharge home with family at supervision to modified independent level. * Cognitive impairment s/p TBI. Rancho level 6-7. * OLOG 18, 13, 17 on past 3 days as of 12/19/2017. Distractible, impaired attention, memory and executive function. * Continue CYLINDER INSPECTOR AND TESTER to optimize cognitive function and communication. * Sitter for safety due to impulsivity. * Low stimulation, monitor sleep. * Has had fluctuating alertness and refusal of therapies due to fatigue at times. * Improved with amitriptyline at HS 25 mg to improve sleep. Further improvement with amantadine 100 mg twice daily before breakfast and lunch starting 12/18/2017. * Discussed with patient and family starting on melatonin at bedtime to help with sleep-wake cycles, increasing amitriptyline to 50 mg p.o. at bedtime and also consider increasing amantadine to 200 mg p. o. twice daily at morning and noon. Plan to hold off on increase in amantadine for now. Left ear pain. Query whether it is related to mastoid fracture. With retraction of ear drum he may have eustachian dysfunction due to edema. * Continue acetaminophen scheduled. Consider trial of decongestant versus nasal steroid. Chronic/stable conditions: * Risk for seizure. May have had an early seizure. Has completed > 7 days anticonvulsant. Discontinued levetiracetam. Seizure precautions. * C-spine clearance was done by imaging alone. Monitor for signs/symptoms of neck pain or neurologic compromise. * Hyponatremia, resolved. * Leukocytosis. No S/Sx infection. * EtOH intoxication. Has been treated with thiamine IV in the hospital. Out of the window for withdrawal. * Prophylaxis, Anticoagulation relatively contraindicated with recent brain hemorrhages; now with adequate mobility and minimal DVT risk. Will have SCDs. 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 Tentative discharge date of 12/27/2017. Follow-up: repeat head CT in 4 weeks, approximately January 07, 2018. 12/13/17 08:40 12/13/17 08:47 12/18/17 10:34 12/18/17 10:42 12/20/17 10:20 12/20/17 10:37 Subjective: Chief complaint: Alertness level No acute events overnight. Patient reportedly had some difficulty sleeping as has been his usual. He is much more interactive during the day as reported by therapists, the patient himself, and other staff. He denies any new shortness other chest pain, no new numbness, tingling, or weakness. He denies diplopia but on testing he did endorse some. Overall he is unconcerned and participating well. Objective: Vital Signs Temp Pulse Resp BP Pulse Ox 36.7 C 79 16 96/63 L 95 12/20/17 06:41 12/20/17 06:41 12/20/17 06:41 12/20/17 06:41 12/20/17 06:41 Laboratory Results 12/16/17 06:00 12/17/17 06:00 12/19/17 12/20/17 12/21/17 05:59 05:59 05:59 Intake Total 1676 1122 354 Balance 1676 1122 354 Physical Exam - Physical Exam General Appearance: WD/WN, alert, no apparent distress EENT: other (Dysconjugate gaze mostly resolved), No scleral icterus (R), No scleral icterus (L) Respiratory: No respiratory distress, No accessory muscle use Cardiac/Chest: normal peripheral pulses, regular rate, rhythm, No edema Skin: normal color, warm/dry, No cyanosis Extremities: non-tender, No pedal edema, No swelling Neuro/Psych: alert, normal mood/affect, other (He did not have insight into the reason he was in the hospital), No oriented x 3 (Oriented times self and location, but off by 1 day on date.) ICD10 Worksheet Patient Problems: Problems Problem Status Onset Subdural hematoma Acute Multiple contusions Acute Fall (on) (from) other stairs and steps, initial encounter Acute Subarachnoid hemorrhage Acute Skull fracture Acute
[2017-12-20] MEDS: FAMOTIDINE 20 MG TAB PO SCH ×2 (10:28→20:57)
[2017-12-20] MEDS ORDERED: SENNOSIDES/DOCUSATE SODIUM TAB PO PRN (11:46)
[2017-12-20] MEDS: AMITRIPTYLINE HCL 25 MG TAB PO SCH (20:56)
[2017-12-20] MEDS: MELATONIN 3 MG TAB PO SCH (20:57)
[2017-12-20] MEDS ORDERED: AMITRIPTYLINE HCL 50 MG TAB PO SCH (21:00)
[2017-12-21] MEDS: ACETAMINOPHEN 500 MG TAB PO SCH ×2 (06:31→13:29)
[2017-12-21] MEDS: AMANTADINE HCL 100 MG CAP PO SCH ×2 (06:31→12:46)
[2017-12-21] MEDS: FAMOTIDINE 20 MG TAB PO SCH ×2 (09:03→20:04)
--- NOTE | 2017-12-21 11:50 | SOAPPROG ---
SOAP Progress Note Assessment/Plan: Assessment: 27-year-old male status post a severe traumatic brain injury on 12/01/2017 due to falling down concrete steps while intoxicated on alcohol, with intraparenchymal hemorrhage in the bilateral frontal lobes and bilateral temporal lobes, bilateral frontal extradural hemorrhage in epidural versus subdural space, complicated by left frontal bone and left mastoid sinus fractures, with resolved hyponatremia and history of immediate seizure without additional seizures observed in the hospital. * TBI. Impaired balance and mobility. * Initial FIM a 44 on 12/14/2017; improved to 76 on 12/19/2017. Has ambulated a 1000 ft outside with no assistive device, SBA and cues for safety. Has climbed 36 stairs. Setup to modified independence with ADLs. Has diplopia treated with alternating eye occlusion using tape on clear goggles. * PT and OT to optimize mobility and ADLs towards discharge home with family at supervision to modified independent level. * Cognitive impairment s/p TBI. Rancho level 4-5. * OLOG 18, 13, 17 on past 3 days as of 12/19/2017; improved to 25 on 12/21/2017. Distractible, impaired attention, memory and executive function. * Continue SALES COMPENSATION ANALYST to optimize cognitive function and communication. * Sitter for safety due to impulsivity. * Low stimulation, monitor sleep. * Has had fluctuating alertness and refusal of therapies due to fatigue at times. * Improved with amitriptyline at HS 25 mg to improve sleep; titrated to 50 mg starting 12/20/2017. Slept 8 hr overnight 12/20 - 12/21/2017. Further improvement with amantadine 100 mg twice daily before breakfast and lunch starting 12/18/2017. * Trichotillomania? Related to initiation of stimulant? * Continue to observe. Consider change to alternate stimulant such as low-dose methylphenidate. Left ear pain. Query whether it is related to mastoid fracture. With retraction of ear drum he may have eustachian dysfunction due to edema. * Continue acetaminophen scheduled. Consider trial of decongestant versus nasal steroid. Chronic/stable conditions: * Risk for seizure. May have had an early seizure. Has completed > 7 days anticonvulsant. Discontinued levetiracetam. Seizure precautions. * C-spine clearance was done by imaging alone. Monitor for signs/symptoms of neck pain or neurologic compromise. * Hyponatremia, resolved. * Leukocytosis. No S/Sx infection. * EtOH intoxication. Has been treated with thiamine IV in the hospital. Out of the window for withdrawal. * Prophylaxis, Anticoagulation relatively contraindicated with recent brain hemorrhages; now with adequate mobility and minimal DVT risk. Will have SCDs. Attended family conference, 30 min. Patient's parents participated. Discussed with case management, nursing, PT, OT, SALES COMPENSATION ANALYST. 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 Tentative discharge date of 12/28/2017. Follow-up: repeat head CT in 4 weeks, approximately January 07, 2018. 12/21/17 11:41 Subjective: No complaints. When asked he acknowledges that he has had left ear pain; he says mostly it is in the morning and then it resolves. Also has occasional headache. Nurse reports that he slept a full 8 hr last night from 10:30 p.m. to 6:30 a.m.. Staff have also noticed picking at hair on head, goldstein and eyebrows. Objective: Vital Signs Temp Pulse Resp BP Pulse Ox 36.8 C 74 15 107/69 93 12/21/17 06:32 12/21/17 06:32 12/21/17 06:32 12/21/17 06:32 12/21/17 06:32 Laboratory Results 12/16/17 06:00 12/17/17 06:00 12/20/17 12/21/17 12/22/17 05:59 05:59 05:59 Intake Total 1122 840 Balance 1122 840 - Time Spent With Patient Time Spent With Patient: Greater than 30 min floor time today, including more than 50% of time in coordination of care and counseling during family meeting. Physical Exam - Physical Exam General Appearance: WD/WN, alert, no apparent distress Respiratory: No respiratory distress, No accessory muscle use Skin: normal color, warm/dry Neuro/Psych: no motor/sensory deficits, alert, normal mood/affect, cognition abnormalities (Reduced initiation; responds appropriately to questions; reduced expansion and elaboration.), No abnormal gait ICD10 Worksheet Patient Problems: Problems Problem Status Onset Fall (on) (from) other stairs and steps, initial encounter Acute Multiple contusions Acute Skull fracture Acute Subarachnoid hemorrhage Acute Subdural hematoma Acute
[2017-12-21] MEDS: MELATONIN 3 MG TAB PO SCH (20:04)
[2017-12-21] MEDS: AMITRIPTYLINE HCL 25 MG TAB PO SCH (20:04)
[2017-12-22] MEDS: ACETAMINOPHEN 500 MG TAB PO SCH ×4 (00:40→20:38)
[2017-12-22] MEDS: AMANTADINE HCL 100 MG CAP PO SCH ×2 (06:33→12:47)
[2017-12-22] MEDS: FAMOTIDINE 20 MG TAB PO SCH ×2 (08:54→20:38)
--- NOTE | 2017-12-22 13:29 | SOAPPROG ---
SOAP Progress Note Assessment/Plan: Assessment: 27-year-old male status post a severe traumatic brain injury on 12/01/2017 due to falling down concrete steps while intoxicated on alcohol, with intraparenchymal hemorrhage in the bilateral frontal lobes and bilateral temporal lobes, bilateral frontal extradural hemorrhage in epidural versus subdural space, complicated by left frontal bone and left mastoid sinus fractures, with resolved hyponatremia and history of immediate seizure without additional seizures observed in the hospital. * TBI. Impaired balance and mobility. * Initial FIM a 44 on 12/14/2017; improved to 76 on 12/19/2017. Has ambulated a 1000 ft outside with no assistive device, SBA and cues for safety. Has climbed 36 stairs. Setup to modified independence with ADLs. Has diplopia treated with alternating eye occlusion using tape on clear goggles. * PT and OT to optimize mobility and ADLs towards discharge home with family at supervision to modified independent level. * Cognitive impairment s/p TBI. Rancho level 4-5. * OLOG 18, 13, 17 on past 3 days as of 12/19/2017; improved to 25 on 12/21/2017. Distractible, impaired attention, memory and executive function. * Continue ENGINEER ASSISTANT to optimize cognitive function and communication. * Sitter for safety due to impulsivity. * Low stimulation, monitor sleep. * Has had fluctuating alertness and refusal of therapies due to fatigue at times. * Improved with amitriptyline at HS 25 mg to improve sleep; titrated to 50 mg starting 12/20/2017. Slept 8 hr overnight 12/20 - 12/21/2017. Further improvement with amantadine 100 mg twice daily before breakfast and lunch starting 12/18/2017. * Trichotillomania? Related to initiation of stimulant? * Continue to observe. Consider change to alternate stimulant such as low-dose methylphenidate. Left ear pain. Query whether it is related to mastoid fracture. With retraction of ear drum he may have eustachian dysfunction due to edema. * Continue acetaminophen scheduled. Consider trial of decongestant versus nasal steroid. Chronic/stable conditions: * Risk for seizure. May have had an early seizure. Has completed > 7 days anticonvulsant. Discontinued levetiracetam. Seizure precautions. * C-spine clearance was done by imaging alone. Monitor for signs/symptoms of neck pain or neurologic compromise. * Hyponatremia, resolved. * Leukocytosis. No S/Sx infection. * EtOH intoxication. Has been treated with thiamine IV in the hospital. Out of the window for withdrawal. * Prophylaxis, Anticoagulation relatively contraindicated with recent brain hemorrhages; now with adequate mobility and minimal DVT risk. Will have SCDs. Plan: 12/22/17 13:28 Subjective: Says he wants to leave on Sunday to go back to work. Continued left ear pain Objective: Vital Signs Temp Pulse Resp BP Pulse Ox 36.7 C 78 16 106/71 98 12/22/17 06:36 12/22/17 06:36 12/22/17 06:36 12/22/17 06:36 12/22/17 06:36 Laboratory Results 12/16/17 06:00 12/17/17 06:00 12/21/17 12/22/17 12/23/17 05:59 05:59 05:59 Intake Total 840 700 365 Balance 840 700 365 Physical Exam - Physical Exam General Appearance: WD/WN, alert, no apparent distress Respiratory: No respiratory distress Cardiac/Chest: regular rate, rhythm, No edema Skin: normal color, warm/dry Neuro/Psych: alert, normal mood/affect ICD10 Worksheet Patient Problems: Problems Problem Status Onset Fall (on) (from) other stairs and steps, initial encounter Acute Multiple contusions Acute Skull fracture Acute Subarachnoid hemorrhage Acute Subdural hematoma Acute
[2017-12-22] MEDS: MELATONIN 3 MG TAB PO SCH (20:38)
[2017-12-22] MEDS: AMITRIPTYLINE HCL 25 MG TAB PO SCH (20:39)
[2017-12-23] MEDS: ACETAMINOPHEN 500 MG TAB PO SCH ×3 (06:28→20:35)
[2017-12-23] MEDS: AMANTADINE HCL 100 MG CAP PO SCH ×2 (06:29→11:47)
[2017-12-23] MEDS: FAMOTIDINE 20 MG TAB PO SCH ×2 (11:47→20:35)
[2017-12-23] MEDS: AMITRIPTYLINE HCL 25 MG TAB PO SCH (20:35)
[2017-12-23] MEDS: MELATONIN 3 MG TAB PO SCH (20:35)
--- NOTE | 2017-12-23 21:28 | SOAPPROG ---
SOAP Progress Note Assessment/Plan: Assessment: 27-year-old male status post a severe traumatic brain injury on 12/01/2017 due to falling down concrete steps while intoxicated on alcohol, with intraparenchymal hemorrhage in the bilateral frontal lobes and bilateral temporal lobes, bilateral frontal extradural hemorrhage in epidural versus subdural space, complicated by left frontal bone and left mastoid sinus fractures, with resolved hyponatremia and history of immediate seizure without additional seizures observed in the hospital. * TBI. Impaired balance and mobility. * Initial FIM a 44 on 12/14/2017; improved to 76 on 12/19/2017. Has ambulated a 1000 ft outside with no assistive device, SBA and cues for safety. Has climbed 36 stairs. Setup to modified independence with ADLs. Has diplopia treated with alternating eye occlusion using tape on clear goggles. * PT and OT to optimize mobility and ADLs towards discharge home with family at supervision to modified independent level. * Cognitive impairment s/p TBI. Rancho level 4-5. * OLOG 18, 13, 17 on past 3 days as of 12/19/2017; improved to 25 on 12/21/2017. Distractible, impaired attention, memory and executive function. * Continue PRACTICE ADMINISTRATOR to optimize cognitive function and communication. * Sitter for safety due to impulsivity. * Low stimulation, monitor sleep. * Has had fluctuating alertness and refusal of therapies due to fatigue at times. * Improved with amitriptyline at HS 25 mg to improve sleep; titrated to 50 mg starting 12/20/2017. Slept 8 hr overnight 12/20 - 12/21/2017. Further improvement with amantadine 100 mg twice daily before breakfast and lunch starting 12/18/2017. * Trichotillomania? Related to initiation of stimulant? * Continue to observe. Consider change to alternate stimulant such as low-dose methylphenidate. Left ear pain. Query whether it is related to mastoid fracture. With retraction of ear drum he may have eustachian dysfunction due to edema. * Continue acetaminophen scheduled. Consider trial of decongestant versus nasal steroid. Chronic/stable conditions: * Risk for seizure. May have had an early seizure. Has completed > 7 days anticonvulsant. Discontinued levetiracetam. Seizure precautions. * C-spine clearance was done by imaging alone. Monitor for signs/symptoms of neck pain or neurologic compromise. * Hyponatremia, resolved. * Leukocytosis. No S/Sx infection. * EtOH intoxication. Has been treated with thiamine IV in the hospital. Out of the window for withdrawal. * Prophylaxis, Anticoagulation relatively contraindicated with recent brain hemorrhages; now with adequate mobility and minimal DVT risk. Will have SCDs. Plan: 12/22/17 13:28 Subjective: No new complaints Objective: Vital Signs Temp Pulse Resp BP Pulse Ox 36.8 C 106 H 18 106/83 H 94 12/23/17 19:16 12/23/17 19:16 12/23/17 19:16 12/23/17 19:16 12/23/17 19:16 Laboratory Results 12/16/17 06:00 12/17/17 06:00 12/22/17 12/23/17 12/24/17 05:59 05:59 05:59 Intake Total 700 1401 718 Balance 700 1401 718 Physical Exam - Physical Exam General Appearance: alert, no apparent distress Respiratory: No respiratory distress Neuro/Psych: alert, normal mood/affect, other (Little pressured speech) ICD10 Worksheet Patient Problems: Problems Problem Status Onset Fall (on) (from) other stairs and steps, initial encounter Acute Multiple contusions Acute Skull fracture Acute Subarachnoid hemorrhage Acute Subdural hematoma Acute
[2017-12-24] MEDS: ACETAMINOPHEN 500 MG TAB PO SCH ×3 (06:25→20:15)
[2017-12-24] MEDS: AMANTADINE HCL 100 MG CAP PO SCH ×2 (06:26→11:46)
[2017-12-24] MEDS: FAMOTIDINE 20 MG TAB PO SCH (10:33)
--- NOTE | 2017-12-24 13:37 | SOAPPROG ---
SOAP Progress Note Assessment/Plan: Assessment: 27-year-old male status post a severe traumatic brain injury on 12/01/2017 due to falling down concrete steps while intoxicated on alcohol, with intraparenchymal hemorrhage in the bilateral thalami, frontal lobes and temporal lobes, bilateral frontal extradural hemorrhage in epidural versus subdural space, complicated by left frontal bone and left mastoid sinus fractures, with resolved hyponatremia and history of immediate seizure without additional seizures observed in the hospital. * TBI. Impaired balance and mobility. * Initial FIM a 44 on 12/14/2017; improved to 76 on 12/19/2017. Has ambulated a 1000 ft outside with no assistive device, SBA and cues for safety. Has climbed 36 stairs. Setup to modified independence with ADLs. Has diplopia treated with alternating eye occlusion using tape on clear goggles. * PT and OT to optimize mobility and ADLs towards discharge home with family at supervision to modified independent level. * Cognitive impairment s/p TBI. Rancho level 4-5. * OLOG 29 as of 12/19/2017; improved to 25 on 12/23/2017. Distractible, impaired attention, memory and executive function. * Continue BLOOD BANK LABORATORY TECHNICIAN to optimize cognitive function and communication. * Discontinue sitter as he is safe ambulating and not a fall risk and has not had impulsivity with any risky behaviors. * Low stimulation, monitor sleep. * Has had fluctuating alertness and refusal of therapies due to fatigue at times. * Improved with amitriptyline at HS 25 mg to improve sleep; titrated to 50 mg starting 12/20/2017. Slept 8 hr overnight 12/20 - 12/21/2017. Further improvement with amantadine 100 mg twice daily before breakfast and lunch starting 12/18/2017. * Trichotillomania? Related to initiation of stimulant? * Continue to observe. Consider change to alternate stimulant such as low-dose methylphenidate. Left ear pain. Query whether it is related to mastoid fracture. With retraction of ear drum he may have eustachian dysfunction due to edema. * Continue acetaminophen scheduled. * Trial of nasal steroid for possible use take in tube dysfunction. Chronic/stable conditions: * Risk for seizure. May have had an early seizure. Has completed > 7 days anticonvulsant. Discontinued levetiracetam. Seizure precautions. * C-spine clearance was done by imaging alone. Monitor for signs/symptoms of neck pain or neurologic compromise. * Hyponatremia, resolved. * Leukocytosis. No S/Sx infection. * EtOH intoxication. Has been treated with thiamine IV in the hospital. Out of the window for withdrawal. * Prophylaxis, Anticoagulation relatively contraindicated with recent brain hemorrhages; now with adequate mobility and minimal DVT risk. Will have SCDs. 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 Tentative discharge date of 12/27/2017. Follow-up: repeat head CT in 4 weeks, approximately January 07, 2018. 12/24/17 13:34 Subjective: No complaints. Says that he has peau to his boss and would like to return to work on . Sleeping well. Still has left ear pain, which feels like the pressure changes [place] Sometimes his ear pops and feels better. Objective: Vital Signs Temp Pulse Resp BP Pulse Ox 36.5 C 79 16 112/75 94 12/24/17 06:33 12/24/17 06:33 12/24/17 06:33 12/24/17 06:33 12/24/17 06:33 Laboratory Results 12/16/17 06:00 12/17/17 06:00 12/23/17 12/24/17 12/25/17 05:59 05:59 05:59 Intake Total 1401 1218 Balance 1401 1218 Physical Exam - Physical Exam General Appearance: WD/WN, alert, no apparent distress Respiratory: No respiratory distress, No accessory muscle use Skin: normal color, warm/dry Neuro/Psych: no motor/sensory deficits, alert, normal mood/affect, oriented x 3 ICD10 Worksheet Patient Problems: Problems Problem Status Onset Fall (on) (from) other stairs and steps, initial encounter Acute Multiple contusions Acute Skull fracture Acute Subarachnoid hemorrhage Acute Subdural hematoma Acute
[2017-12-24] MEDS: FLUTICASONE NASAL 120 SPRAYS/16 GM MDI EACHNARE SCH (14:07)
[2017-12-24] MEDS: AMITRIPTYLINE HCL 25 MG TAB PO SCH (20:15)
[2017-12-24] MEDS: MELATONIN 3 MG TAB PO SCH (20:16)
[2017-12-25] MEDS: AMANTADINE HCL 100 MG CAP PO SCH ×2 (06:18→12:43)
[2017-12-25] MEDS: ACETAMINOPHEN 500 MG TAB PO SCH ×3 (06:18→20:51)
--- NOTE | 2017-12-25 09:29 | SOAPPROG ---
SOAP Progress Note Assessment/Plan: 27-year-old male status post a severe traumatic brain injury on 12/01/2017 due to falling down concrete steps while intoxicated on alcohol, with intraparenchymal hemorrhage in the bilateral thalami, frontal lobes and temporal lobes, bilateral frontal extradural hemorrhage in epidural versus subdural space, complicated by left frontal bone and left mastoid sinus fractures, with resolved hyponatremia and history of immediate seizure without additional seizures observed in the hospital. Today's update: Making excellent progress, appears to have improved sleep and wake cycles. No adjustment to medications at this point. Continue pharmacologic and non pharmacologic plan for behavior management. He is exhibiting purposeful and appropriate behavior and responses. * TBI. Impaired balance and mobility. * Initial FIM a 44 on 12/14/2017; improved to 76 on 12/19/2017. Has ambulated a 1000 ft outside with no assistive device, SBA and cues for safety. Has climbed 36 stairs. Setup to modified independence with ADLs. Has diplopia treated with alternating eye occlusion using tape on clear goggles. * PT and OT to optimize mobility and ADLs towards discharge home with family at supervision to modified independent level. * Cognitive impairment s/p TBI. Rancho level 8. * OLOG 25 on 12/23/2017. Distractible, impaired attention, memory and executive function. * Continue INFORMATION ASSISTANT to optimize cognitive function and communication. * Wander guard * Low stimulation, monitor sleep. * Has had fluctuating alertness and refusal of therapies due to fatigue at times. * Improved with amitriptyline at HS 25 mg to improve sleep; titrated to 50 mg starting 12/20/2017. Slept 8 hr overnight 12/20 - 12/21/2017. Further improvement with amantadine 100 mg twice daily before breakfast and lunch starting 12/18/2017. Left ear pain. Query whether it is related to mastoid fracture. With retraction of ear drum he may have eustachian dysfunction due to edema. * Continue acetaminophen scheduled. * Trial of nasal steroid for possible use take in tube dysfunction. Chronic/stable conditions: * Risk for seizure. May have had an early seizure. Has completed > 7 days anticonvulsant. Discontinued levetiracetam. Seizure precautions. * C-spine clearance was done by imaging alone. Monitor for signs/symptoms of neck pain or neurologic compromise. * Hyponatremia, resolved. * Leukocytosis. No S/Sx infection. * EtOH intoxication. Has been treated with thiamine IV in the hospital. Out of the window for withdrawal. * Prophylaxis, Anticoagulation relatively contraindicated with recent brain hemorrhages; now with adequate mobility and minimal DVT risk. Will have SCDs. 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 Tentative discharge date of 12/27/2017. Follow-up: repeat head CT in 4 weeks, approximately January 07, 2018. 12/13/17 08:40 12/13/17 08:47 12/18/17 10:34 12/18/17 10:42 12/20/17 10:20 12/20/17 10:37 12/25/17 09:25 12/25/17 09:28 Subjective: Chief complaint: Rehab progress No acute events overnight. Patient was starting work with physical therapy who had no concerns except for some difficulty initiating. Otherwise patient denies any new shortness of breath or chest pain, no new numbness, tingling, or weakness. No new concerns, sleeping much better at night per report from staff and also awake during the day to a greater extent. Objective: Vital Signs Temp Pulse Resp BP Pulse Ox 36.5 C 69 16 103/66 95 12/25/17 06:32 12/25/17 06:32 12/25/17 06:32 12/25/17 06:32 12/25/17 06:32 Laboratory Results 12/16/17 06:00 12/17/17 06:00 12/24/17 12/25/17 12/26/17 05:59 05:59 05:59 Intake Total 1218 1190 Balance 1218 1190 Physical Exam - Physical Exam General Appearance: WD/WN, alert, no apparent distress EENT: No scleral icterus (R), No scleral icterus (L) Respiratory: No respiratory distress, No accessory muscle use Cardiac/Chest: normal peripheral pulses, regular rate, rhythm Skin: normal color, warm/dry, No cyanosis, No diaphoresis Extremities: No pedal edema, No swelling Neuro/Psych: alert, normal mood/affect, other (Oriented to his situation in the hospital as well as the place.) ICD10 Worksheet Patient Problems: Problems Problem Status Onset Fall (on) (from) other stairs and steps, initial encounter Acute Multiple contusions Acute Skull fracture Acute Subarachnoid hemorrhage Acute Subdural hematoma Acute
[2017-12-25] MEDS: FLUTICASONE NASAL 120 SPRAYS/16 GM MDI EACHNARE SCH (09:58)
[2017-12-25] MEDS: MELATONIN 3 MG TAB PO SCH (20:51)
[2017-12-25] MEDS: AMITRIPTYLINE HCL 25 MG TAB PO SCH (20:51)
[2017-12-26] MEDS: ACETAMINOPHEN 500 MG TAB PO SCH ×3 (06:29→20:30)
[2017-12-26] MEDS: AMANTADINE HCL 100 MG CAP PO SCH ×2 (06:30→12:51)
[2017-12-26] MEDS: FLUTICASONE NASAL 120 SPRAYS/16 GM MDI EACHNARE SCH (08:46)
--- NOTE | 2017-12-26 17:12 | SOAPPROG ---
SOAP Progress Note Assessment/Plan: Assessment: 27-year-old male status post a severe traumatic brain injury on 12/01/2017 due to falling down concrete steps while intoxicated on alcohol, with intraparenchymal hemorrhage in the bilateral thalami, frontal lobes and temporal lobes, bilateral frontal extradural hemorrhage in epidural versus subdural space, complicated by left frontal bone and left mastoid sinus fractures, with resolved hyponatremia and history of immediate seizure without additional seizures observed in the hospital. * TBI. Impaired balance and mobility. * Initial FIM 44 on 12/14/2017; improved to 76 on 12/19/2017, and to 97 as of 2017. Independent with mobility. Has ambulated a 1000 ft outside with no assistive device. Has climbed 36 stairs. Intended with ADLs. Has diplopia treated with alternating eye occlusion using tape on clear goggles. * PT and OT to optimize mobility and ADLs towards discharge home with family at supervision to modified independent level. * Cognitive impairment s/p TBI. Rancho level 7 - 8. * Emerged from post traumatic amnesia on 12/22/2017. Continues to have decreased word retrieve decreased naming decreased expansion, DIS executive and stimulus bound. Decreased initiation and decreased impulse control.. Distractible, impaired attention, memory and executive function. * Continue SHOT PACKER to optimize cognitive function and communication. * Low stimulation, monitor sleep. * Has had fluctuating alertness and refusal of therapies due to fatigue at times. * Improved with amitriptyline at HS 25 mg to improve sleep; titrated to 50 mg starting 12/20/2017. Slept 8 hr overnight 12/20 - 12/21/2017. Further improvement with amantadine 100 mg twice daily before breakfast and lunch starting 12/18/2017. * Trichotillomania? Related to initiation of stimulant? * Continue to observe. Consider change to alternate stimulant such as low-dose methylphenidate. Left ear pain. Query whether it is related to mastoid fracture. With retraction of ear drum he may have eustachian dysfunction due to edema. * Continue acetaminophen scheduled. * Trial of nasal steroid for possible eustachian dysfunction. * Will not discharge home with nasal steroid. Chronic/stable conditions: * Risk for seizure. May have had an early seizure. Has completed > 7 days anticonvulsant. Discontinued levetiracetam. Seizure precautions. * C-spine clearance was done by imaging alone. Monitor for signs/symptoms of neck pain or neurologic compromise. * Hyponatremia, resolved. * Leukocytosis. No S/Sx infection. * EtOH intoxication. Has been treated with thiamine IV in the hospital. Out of the window for withdrawal. * Prophylaxis, Anticoagulation relatively contraindicated with recent brain hemorrhages; now with adequate mobility and minimal DVT risk. Will have SCDs. Attended staffing, 15 min. Discussed with director of casework department, nursing, PT, OT, SHOT PACKER. Plan for discharge home tomorrow, 12/27/2017. Met with patient and discussed risks of alcohol consumption during. Recovery from TBI including poor judgment , impulsivity and risk for falls. He will be referred to substance abuse counseling. He will continue outpatient SHOT PACKER. He will follow up with staple laster and brain injury specialist Dr. Maxwell. Follow-up: repeat head CT in 4 weeks, approximately January 07, 2018. 12/26/17 17:06 Subjective: No complaints. Once his wallet back. Informed director of casework department that once he discharges home he intends to go to a bar and resume drinking alcohol. Objective: Vital Signs Temp Pulse Resp BP Pulse Ox 36.7 C 76 15 100/70 93 12/26/17 06:32 12/26/17 06:32 12/26/17 06:32 12/26/17 06:32 12/26/17 06:32 Laboratory Results 12/16/17 06:00 12/17/17 06:00 12/25/17 12/26/17 12/27/17 05:59 05:59 05:59 Intake Total 1190 1190 Balance 1190 1190 Physical Exam - Physical Exam General Appearance: WD/WN, alert, no apparent distress Respiratory: No respiratory distress, No accessory muscle use Skin: normal color, warm/dry Neuro/Psych: no motor/sensory deficits, alert, normal mood/affect, oriented x 3 , cognition abnormalities, No abnormal gait ICD10 Worksheet Patient Problems: Problems Problem Status Onset Fall (on) (from) other stairs and steps, initial encounter Acute Multiple contusions Acute Skull fracture Acute Subarachnoid hemorrhage Acute Subdural hematoma Acute
--- NOTE | 2017-12-26 17:15 | PDOREHIP ---
Admission [facility] - Admission - 3 Day Assessment Period Admission Date/Day 1: 12/11/17 Day 2: 12/12/17 Day 3: 12/13/17 Discharge [facility] - Discharge - 3 Day Assessment Period 2 Days Prior to Anticipated Discharge Date: 12/25/17 1 Day Prior to Anticipated Discharge Date: 12/26/17 Anticipated Discharge Date: 12/27/17 - Discharge Skin Conditions Unhealed Pressure Ulcer (1 or more/Stage 1 or >)-Discharge: 0. No
[2017-12-26] MEDS: MELATONIN 3 MG TAB PO SCH (20:30)
[2017-12-26] MEDS: AMITRIPTYLINE HCL 25 MG TAB PO SCH (20:30)
[2017-12-27] MEDS: ACETAMINOPHEN 500 MG TAB PO SCH (06:13)
[2017-12-27] MEDS: AMANTADINE HCL 100 MG CAP PO SCH ×2 (06:14→12:26)
[2017-12-27 07:10] VITALS: BP 105/64; PULSE 69; RESP 15; TEMP 98.3; O2SAT 95
[2017-12-27] MEDS: FLUTICASONE NASAL 120 SPRAYS/16 GM MDI EACHNARE SCH (09:58)
--- NOTE | 2017-12-27 11:36 | PDDCSUM ---
Discharge Summary Discharge Summary: Name: Alon Valencia Admission date: 12/11/2017 Discharge date: Today, 12/27/2017 Discharging physician: Toy Mcgarry MD, Robin Severino MD Admitting diagnosis: 2.22 TBI Discharge diagnosis: Same Comorbid diagnoses: Impairments in mobility and self-care secondary to traumatic brain injury, cognitive impairment secondary to traumatic brain injury , impaired alertness and fatigue due to traumatic brain injury, left ear pain, hyponatremia, leukocytosis Consultations: physical therapy, occupational therapy, speech language pathology , dietary, social work Procedures: Cervical spine x-ray, normal Reason for admission: Please see the complete history and physical done by Dr. Mo on 12/11/2017 for full details, but briefly this is a 27-year-old male with no substantial past medical history who sustained a severe traumatic brain injury when he fell on approximately 12 concrete stairs on 12/01/2017 with subdural, subarachnoid, and intraparenchymal hemorrhage complicated by non depressed left frontal and left mastoid sinus fractures. Original GCS on EMS arrival was 11 and he declined to a 7, intoxicated. He was intubated in the emergency department. He had concerned about an immediate seizure and was on Keppra. C-spine was cleared radiographically. Rehabilitation course: Alon made excellent progress in inpatient rehabilitation. He progressed to a Rancho level 8, was participating actively in therapies. His initial functional independence measure was 44, and was around 97 close to discharge. He was essentially ambulating independently with mobility, requiring some supervision with ADLs and assistance with IADLs. Cognitive impairment was his biggest issue. He was greatly improved on low- dose amitriptyline in the evening as well as anti edema 100 mg in the morning and at noon which could be increased to 200 mg in the morning and noon if necessary. Headache was not a particular problem for him but did seem to be improved with the use of amitriptyline at night. He had some left ear pain that was associated with eustachian tube dysfunction due to edema and was started on a nasal steroid. His levetiracetam was discontinued as he had received 1 week of prophylactic treatment and since he only had an immediate seizure literature indicates that long-term prophylaxis was not necessary. He is at lifetime increased risk of seizures as discussed with the patient and his family. Hyponatremia and leukocytosis both resolved. He will need ongoing counseling regarding alcohol use. He will continue with outpatient therapies at discharge. Discharge plan: Home with family assistance and outpatient speech therapy. He will need 24 hr assistance initially, and will work with Dr. Maxwell for increasing his independence. He should not drive, operate heavy machinery, work at heights. Medications at discharge: Amantadine 100 mg p. O. Twice daily at 6:00 a.m. And noon Amitriptyline 50 mg p.o. At bedtime Melatonin 3 mg p.o. At bedtime Pending studies: None Issues to be addressed at follow-up: He will need ongoing follow up with Dr. Maxwell of Physical Medicine Rehabilitation, need to establish care with a primary care physician as soon as possible, he will also follow up with neuro ophthalmology, Dr. Tapia, and Neurosurgery with Dr. Mills. He is not cleared to return to driving and he will need assistance in returning to work activities and driving over time and I anticipate that this will occur with Dr. Maxwell. I anticipate that Dr. Maxwell will also have input regarding the duration of neuro stimulants and amitriptyline. He may also need Otolaryngology for the mastoid fracture depending on the course of healing. The day of discharge, the patient was alert and interactive in questions were answered. His vital signs are normal and physical exam essentially showed normal heart and lung exam, regular rate and rhythm, normal peripheral pulses. Lungs were clear to auscultation bilaterally. Patient was oriented x3. No focal weakness. He also had no diplopia on discharge per his report and no nystagmus or dysconjugate gaze was noted.
== END 2017-12-27 13:31 | disposition home or self-care (01) | DRG 945 ==
LOC: BREH 16:20
PROVIDERS: ADMIT Physical Medicine & Rehabilitation; ATTEND Physical Medicine & Rehabilitation
DX: S06.5X0D Traumatic subdural hemorrhage without loss of consciousness, subsequent encounter (principal); E87.1 Hypo-osmolality and hyponatremia; S02.19XD Other fracture of base of skull, subsequent encounter for fracture with routine healing; S06.2X0D Diffuse traumatic brain injury without loss of consciousness, subsequent encounter; S06.6X0D Traumatic subarachnoid hemorrhage without loss of consciousness, subsequent encounter; H69.92 Unspecified Eustachian tube disorder, left ear; W10.8XXD Fall (on) (from) other stairs and steps, subsequent encounter; Z72.0 Tobacco use
CPT/HCPCS: 92507-GN; 92522-GN; 92610-GN; 97110-GP; 97112-GP; 97116-GP; 97162-GP; 97166-GO; 97530-GO; 97530-GP; 97532-GO; 97535-GO; 99366-GO; G0008